=== PATIENT | female | born 1985 | race African-American/Black ===

== ENCOUNTER 2017-05-29 17:55 | Emergency (ER) | payer SELFPAY ==
[2017-05-29 18:02] VITALS: BP 119/84
[2017-05-29] MEDS ORDERED: Ibuprofen TAB* 600 MG PO ONE ×2 (18:21→19:22)
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
== END 2017-05-29 19:36 | disposition home or self-care (01) ==
LOC: UCEAST 17:55
DX: S29.012A Strain of muscle and tendon of back wall of thorax, initial encounter (principal); S39.012A Strain of muscle, fascia and tendon of lower back, initial encounter; V43.52XA Car driver injured in collision with other type car in traffic accident, initial encounter; Y93.89 Activity, other specified; Y92.410 Unspecified street and highway as the place of occurrence of the external cause; Z98.84 Bariatric surgery status
CPT/HCPCS: 72070; 72110; 99212; A9270-GY; G0463

== ENCOUNTER 2017-09-28 10:41 | Emergency (ER) | payer OTHER ==
[2017-09-28 10:53] VITALS: BP 135/82
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
== END 2017-09-28 11:14 | disposition home or self-care (01) ==
LOC: ED 10:41
DX: R10.84 Generalized abdominal pain (principal); Z53.21 Procedure and treatment not carried out due to patient leaving prior to being seen by health care provider

== ENCOUNTER 2017-10-05 00:18 | Emergency (ER) | payer OTHER ==
[2017-10-05 02:05] LABS: Urine Appearance Cloudy; Urine Blood 2+ (Negative); Urine Color Yellow; Urine Ketones Trace (Negative); Urine Protein Negative (Negative); Urine Specific Gravity 1.027 (1.010-1.030); Urine Urobilinogen Positive (Negative)
[2017-10-05] MEDS ORDERED: Morphine INJ* 2 MG/ML 1 ML CARPUJECT IV ONE (03:10)
[2017-10-05] MEDS ORDERED: NS 0.9% 1000 ML* 1,000 ML IV SCH (03:15)
[2017-10-05] MEDS ORDERED: Morphine INJ* 2 MG/ML 1 ML SYRINGE (TWO MG - NEW SYRINGE VERSION) ONE (03:44)
[2017-10-05 04:57] LABS: ABS Basophils 0 10^3/ul (0-0.2); ABS Eosinophils 0.2 10^3/ul (0-0.6); ABS Monocytes 0.4 10^3/ul (0-0.8); ABS Neutrophils 2.3 10^3/ul (1.5-7.7); ABS Nucleated RBC 0 10^3/ul; Hematocrit 36 % (35-47); Hemoglobin 11.5 g/dl (12.0-16.0); Lymphocyte % 39.4 % (25-47); Mean Corpuscular HGB Conc 32 g/dl (31-36); Mean Corpuscular Hemoglobin 27 pg (27-31); Mean Corpuscular Volume 82 fL (80-97); Mean Platelet Volume 9 um3 (7.4-10.4); Nucleated Red Blood Cells % 0; Platelet Count 244 10^3/ul (150-450); Red Blood Count 4.34 10^6/ul (4.0-5.4); Red Cell Distribution Width 16 % (10.5-15)
[2017-10-05 05:01] LABS: EGFR Non-African American 97.6 (>60)
[2017-10-05 05:42] VITALS: BP 97/54
--- NOTE | 2017-10-05 08:04 | RAD ---
INDICATION: Nausea and vomiting in a patient with a history of Cayden-en-Y gastric bypass surgery. COMPARISON: None TECHNIQUE: Supine and upright views of the abdomen were obtained. FINDINGS: There is a large amount of gas overlying the stool of the midline abdomen and left upper quadrant but no definite pathologic dilatation is noted. There is gas and stool seen throughout the colon as far as the rectum. There is surgical material at the left of midline epigastric area consistent with the patient's surgical history. There is no definite free intraperitoneal air. IMPRESSION: No radiographically apparent acute abdominal pathology.
--- NOTE | 2017-10-21 01:14 | ED ---
Yoselyn Sinha Emily, scribed for Андрей Martino MD on 10/05/17 at 0310 . Abdominal Pain/Female - HPI Summary HPI Summary: This patient is a 32 year old F presenting to [facility] with a chief complaint of sharp mid-epigastric abdominal pain that radiates to the low back that began at 1900. The patient rates the pain 9/10 in severity. Symptoms aggravated by nothing. Symptoms alleviated by nothing. Patient reports nausea and dark urine. Patient denies dysuria and changes in bowel movements. Pt denies having similar symptoms previously. - History of Current Complaint Chief Complaint: EDAbdPain Stated Complaint: ABD PAIN Hx Obtained From: Patient Hx Last Menstrual Period: 10/05/17 Onset/Duration: Sudden Onset, Lasting Hours, Still Present Timing: Constant Severity Initially: Severe Severity Currently: Severe Pain Intensity: 9 Pain Scale Used: 0-10 Numeric Location: Epigastric Character: Sharp Aggravating Factor(s): Nothing Alleviating Factor(s): Nothing Associated Signs and Symptoms: Positive: Nausea, Other: - Positive dark urine. Negative dysuria and changes in bowel movements Allergies/Adverse Reactions: Allergies Allergy/AdvReac Type Severity Reaction Status Date / Time No Known Allergies Allergy Verified 05/29/17 18:02 PMH/Surg Hx/FS Hx/Imm Hx Previously Healthy: No Endocrine/Hematology History: Denies: Hx Diabetes, Hx Thyroid Disease Cardiovascular History: Denies: Hx Congestive Heart Failure, Hx Hypertension Respiratory History: Denies: Hx Asthma, Hx Chronic Obstructive Pulmonary Disease (COPD) GI History: Reports: Other GI Disorders - RUQ pain s/p gastric bypass in june 2012 Denies: Hx Ulcer History: Denies: Hx Renal Disease, Other Problems/Disorders Sensory History: Denies: Hx Contacts or Glasses, Hx Hearing Aid Opthamlomology History: Denies: Hx Contacts or Glasses Neurological History: Denies: Hx Headaches, Hx Migraine, Hx Seizures Psychiatric History: Denies: Hx Anxiety - NOTHING APPLIES ON WHOLE FRONT OF FORM, Hx Depression, Hx Bipolar Disorder - Surgical History Surgery Procedure, Year, and Place: X 3; GASTRIC BYPASS 06/2012; Diagnotic Lap (Internal Hernia) 01/05, tummy tuck Hx Anesthesia Reactions: No - Immunization History Date of Tetanus Vaccine: unknown Date of Influenza Vaccine: 2011 Infectious Disease History: No Infectious Disease History: Denies: Hx Hepatitis, Hx Human Immunodeficiency Virus (HIV), History Other Infectious Disease, Traveled Outside the [place] in Last 30 Days - Family History Known Family History: Negative: Cardiac Disease, Hypertension, Diabetes Family History: NON CONTRIBUTORY - Social History Occupation: Employed Part-time Lives: Alone Alcohol Use: Occasionally Substance Use Type: Reports: Marijuana Substance Use Comment - Amount & Last Used: Rare Smoking Status (MU): Never Smoked Tobacco Review of Systems Positive: Abdominal Pain, Nausea, Other - Negative changes in bowel movements. Negative: Vomiting Genitourinary: Other - Positive dark urine Negative: dysuria All Other Systems Reviewed And Are Negative: Yes Physical Exam - Summary Physical Exam Summary: Appearance: Well-appearing, Well-nourished Skin: Warm, Dry, No rash Eyes: Normal, PERRL, EOMI, sclera anicteric ENT: Normal Neck: Supple, nontender Respiratory: Clear to auscultation Cardiovascular: S1, S2, no murmur, no rub, no gallop Abdomen: Soft, nontender, no organomegaly Bowel sounds: Present Musculoskeletal: Normal, Strength/ROM Intact, no edema, pulses symmetrical Neurological: Normal, A&Ox3, cranial nerves II-XII WNL, follows commands, gait not tested, sensation intact to pin and light touch Psychiatric: affect normal, behavior appropriate, dressed appropriately, judgment intact Triage Information Reviewed: Yes Vital Signs On Initial Exam: Initial Vitals Temp Pulse Resp BP Pulse Ox 98.0 F 82 16 129/98 100 10/05/17 00:20 10/05/17 00:20 10/05/17 00:20 10/05/17 00:20 10/05/17 00:20 Vital Signs Reviewed: Yes Diagnostics - Vital Signs Vital Signs Temp Pulse Resp BP Pulse Ox 10/05/17 00:20 98.0 F 82 16 129/98 100 - Laboratory Lab Results: Lab Results 10/05/17 Range/Units 00:23 Urine Color Yellow Urine Appearance Cloudy Urine pH 6.0 (5-9) Ur Specific [place] 1.027 (1.010-1.030) Urine Protein Negative (Negative) Urine Ketones Trace H (Negative) Urine Blood 2+ H (Negative) Urine Nitrate Negative (Negative) Urine Bilirubin Negative (Negative) Urine Urobilinogen Positive H (Negative) Ur Leukocyte Esterase Trace H (Negative) Urine WBC (Auto) Trace(0-5/hpf) (Absent) Urine RBC (Auto) Trace(0-2/hpf) (Absent) Ur Squamous Epith Cells Present H (Absent) Urine Bacteria Absent (Absent) Urine Glucose Negative (Negative) Result Diagrams: 10/05/17 04:15 10/05/17 04:15 Lab Statement: Any lab studies that have been ordered have been reviewed, and results considered in the medical decision making process. - Radiology Abdomen XR Radiology Interpretation Completed By: ED Physician - Abdomen XR reveals, per ED physician, normal intestinal gas from the left side of the colon. Abdominal Pain Fem Course/Dx - Course Course Of Treatment: This patient is a 32 year old F presenting to [facility] with a chief complaint of sharp umbilical abdominal pain that radiates to the low back that began at 1900. Physical Exam Findings. Nml. Abdomen XR reveals, per ED physician, normal intestinal gas from the left side of the colon. Bloodwork and UA obtained. In the ED course the patient was given morphine and fluids. Patient will be discharged with follow up from PCP. The patient is agreeable with this plan. - Diagnoses Provider Diagnoses: Dysmenorrhea Discharge - Discharge Plan Condition: Good Disposition: HOME Patient Education Materials: Dysmenorrhea (ED) Referrals: Carmen Perez NP [Primary Care Provider] - The documentation as recorded by the Yoselyn lopez Emily accurately reflects the service I personally performed and the decisions made by me, Андрей Martino MD.
== END 2017-10-05 05:40 | disposition home or self-care (01) ==
LOC: ED 00:18
DX: N94.6 Dysmenorrhea, unspecified (principal); R11.0 Nausea; R10.13 Epigastric pain
CPT/HCPCS: 36415; 74019; 80053; 81003; 81015; 83690; 85025; 87077; 87086; 96374; 96376; 99283; J2270

== ENCOUNTER 2018-01-29 13:37 | Emergency (ER) | payer OTHER ==
[2018-01-29 13:52] VITALS: BP 125/84
--- NOTE | 2018-01-29 13:57 | UC ---
Throat Pain/Nasal Raymundo HPI - HPI Summary HPI Summary: Pt presents with swollen lymph node to the right side of her neck - first noticed about 3 weeks ago. Has not been changing in size or shape and is not painful. Over the last 2-3 days she has been having right ear pain as well. She is very concerned that this could be her thyroid and would like this checked today. Denies fever, chills, weight loss/gain, night sweats, sore throat, headache, cough, SOB, chest pain. - History of Current Complaint Chief Complaint: UCRespiratory Stated Complaint: SWOLLEN GLANDS Time Seen by Provider: 01/29/18 13:57 Hx Obtained From: Patient Hx Last Menstrual Period: 12/24/17 Severity: Moderate Pain Intensity: 5 Pain Scale Used: 0-10 Numeric - Allergies/Home Medications Allergies/Adverse Reactions: Allergies Allergy/AdvReac Type Severity Reaction Status Date / Time No Known Allergies Allergy Verified 01/29/18 13:52 Home Medications: Home Medications Cyanocobalamin TAB* [Vitamin B12 TAB*] 1,000 mcg PO DAILY 01/29/18 [History Confirmed 01/29/18] Ferrous Sulfate TAB* 325 mg PO DAILY 01/29/18 [History Confirmed 01/29/18] PMH/Surg Hx/FS Hx/Imm Hx - Additional Past Medical History Additional PMH: Vitamin B12 def Anemia - Surgical History Surgical History: Yes Surgery Procedure, Year, and Place: X 3; GASTRIC BYPASS 06/2012; Diagnotic Lap (Internal Hernia) 01/05, anita velazquez - Family History Known Family History: Negative: Cardiac Disease, Hypertension, Diabetes Family History: NON CONTRIBUTORY - Social History Lives: With Family Alcohol Use: None Substance Use Type: Marijuana Substance Use Comment - Amount & Last Used: daily Smoking Status (MU): Never Smoked Tobacco - Immunization History Most Recent Influenza Vaccination: 2009 Most Recent Tetanus Shot: Unknown Most Recent Pneumonia Vaccination: Never Review of Systems Constitutional: Negative Skin: Negative Eyes: Negative ENT: Ear Ache Respiratory: Negative Cardiovascular: Negative Gastrointestinal: Negative Neurovascular: Negative Neurological: Negative Psychological: Negative All Other Systems Reviewed And Are Negative: Yes Physical Exam - Summary Physical Exam Summary: GENERAL: NAD. WDWN. No pain distress. SKIN: No rashes, sores, ulcers, masses, lesions. HEENT: Head: AT/NC Eyes: PERRLA. EOM intact. Conjunctiva clear without inflammation or discharge. Ears: Hearing grossly normal. TMs intact, no bulging, erythema, or edema. Nose: Nasal mucosa pink and moist. NTTP maxillary and frontal sinus. Throat: Posterior oropharynx without exudates, erythema, or tonsillar enlargement. Uvula midline. NECK: Supple. Right tonsillar lymph node approx 3mm in size. Mobile. Mildly TTP. CHEST: CTAB. No r/r/w. No accessory muscle use. Breathing comfortably and in no distress. CV: RRR. Without m/r/g. Pulses intact. Brisk cap refill. NEURO: Alert. CN II-XII grossly intact. PSYCH: Age appropriate behavior. Triage Information Reviewed: Yes Vital Signs: Initial Vital Signs Temp 98.8 F 01/29/18 13:49 Pulse 88 01/29/18 13:49 Resp 16 01/29/18 13:49 BP 125/84 01/29/18 13:49 Pulse Ox 100 01/29/18 13:49 Throat Pain/Nasal Course/Dx - Course Course Of Treatment: Will draw for CBC and TSH and advise her to f/u with her PCP for lab results and further evaluation. - Differential Dx/Diagnosis Provider Diagnoses: Tonsillar LAD Discharge - Sign-Out/Discharge Documenting (check all that apply): Discharge/Admit/Transfer - Discharge Plan Condition: Stable Disposition: HOME Patient Education Materials: Lymphadenopathy (ED) Referrals: Carmen Perez NP [Primary Care Provider] - Additional Instructions: If you develop a fever, shortness of breath, chest pain, new or worsening symptoms - please call your PCP or go to the ED. 1) Please schedule a follow up appointment with PCP for their next available appointment - Billing Disposition and Condition Condition: STABLE Disposition: HOME
[2018-01-29 18:45] LABS: ABS Basophils 0.1 10^3/ul (0-0.2); ABS Eosinophils 0.2 10^3/ul (0-0.6); ABS Monocytes 0.4 10^3/ul (0-0.8); ABS Neutrophils 2.4 10^3/ul (1.5-7.7); ABS Nucleated RBC 0 10^3/ul; Eosinophil % 4.2 % (0-6); Hematocrit 38 % (35-47); Hemoglobin 12.8 g/dl (12.0-16.0); Lymphocyte % 39.5 % (25-47); Mean Corpuscular HGB Conc 33 g/dl (31-36); Mean Corpuscular Hemoglobin 29 pg (27-31); Mean Corpuscular Volume 87 fL (80-97); Mean Platelet Volume 9.7 um3 (7.4-10.4); Nucleated Red Blood Cells % 0; Platelet Count 210 10^3/ul (150-450); Red Blood Count 4.42 10^6/ul (4.0-5.4); Red Cell Distribution Width 15 % (10.5-15); White Blood Count 5.1 10^3/ul (3.5-10.8)
--- NOTE | 2018-01-30 11:43 | UC ---
- Progress Note Progress Note: PLS CALL PT. TSH BORDERLINE LOW. FOLLOW-UP WITH PCP FOR FURTHER EVALUATION. - WILBERT MERA MD Discharge - Sign-Out/Discharge Documenting (check all that apply): Post-Discharge Follow Up - Discharge Plan Condition: Stable Disposition: HOME Patient Education Materials: Lymphadenopathy (ED) Referrals: Carmen Perez NP [Primary Care Provider] - Additional Instructions: If you develop a fever, shortness of breath, chest pain, new or worsening symptoms - please call your PCP or go to the ED. 1) Please schedule a follow up appointment with PCP for their next available appointment - Billing Disposition and Condition Condition: STABLE Disposition: HOME
== END 2018-01-29 14:20 | disposition home or self-care (01) ==
LOC: UCEAST 13:37
DX: R59.0 Localized enlarged lymph nodes (principal); R94.6 Abnormal results of thyroid function studies; H92.01 Otalgia, right ear; D51.9 Vitamin B12 deficiency anemia, unspecified
CPT/HCPCS: 36415; 84443; 85025; 99211; G0463

== ENCOUNTER 2018-02-22 06:21 | Day surgery (SDC) | payer OTHER ==
[~2018-02-22 06:21] MED LIST: Buffered Lidocaine 0.9% SYRIN* 5 ML/SYR SYRINGE INTRADERM ONE; Dexamethasone IV* 4 MG/ML 1 ML (4 MG) IV SLOW PU ONE; Famotidine IV* 10 MG/ML 2 ML (20 mg) IV ONE
[2018-02-22] MEDS ORDERED: Famotidine IV* 10 MG/ML 2 ML (20 mg) ONE (06:44)
[2018-02-22] MEDS ORDERED: Dexamethasone IV* 4 MG/ML 1 ML (4 MG) ONE (06:44)
[2018-02-22] MEDS ORDERED: Midazolam* 1 MG/ML 2 ML VIAL (2 MG) ONE (08:04)
[2018-02-22] MEDS ORDERED: fentaNYL* 50 MCG/ML 2 ML VIAL (100 MCG VIAL) ONE ×2 (08:04→09:50)
[2018-02-22] MEDS ORDERED: Bupivacaine 0.5% SDV PF* 30ML VIAL ONE (08:11)
[2018-02-22] MEDS ORDERED: Propofol* 10 MG/ML 20 ML BTL IV PUSH ONE (09:06)
[2018-02-22] MEDS ORDERED: Succinylcholine* 20 MG/ML 10 ML VIAL ONE (09:06)
[2018-02-22] MEDS ORDERED: Lidocaine 2% PF * 5 ML VIAL ONE (09:06)
[2018-02-22] MEDS ORDERED: Rocuronium* 10 MG/ML VIAL ONE (09:11)
[2018-02-22] MEDS ORDERED: Glycopyrrolate IV* 0.2 MG/ML 1 ML VIAL ONE (09:16)
[2018-02-22] MEDS ORDERED: Sugammadex * 200 MG/2 ML VIAL IV PUSH ONE (09:44)
[2018-02-22] MEDS ORDERED: Ondansetron ODT TAB* 4 MG PO PRN (09:51)
[2018-02-22] MEDS ORDERED: Naloxone* 0.4 MG/ML 1 ML VIAL IV PRN (09:51)
[2018-02-22] MEDS ORDERED: HYDROmorphone INJ* 1 MG/ML CARPUJECT SYRINGE IV PRN (09:51)
[2018-02-22] MEDS: fentaNYL* 50 MCG/ML 2 ML VIAL (100 MCG VIAL) IV PRN ×2 (09:52→10:16)
--- NOTE | 2018-02-22 10:08 | OP ---
DATE OF OPERATION: 02/22/2018 [facility] DATE OF : 1985. SURGEON: Cheryl Gonzalez MD. ANESTHESIOLOGIST: Ramakrishna Simmons MD. ANESTHESIA: General endotracheal. PRE-OP DIAGNOSIS: Satisfied parity. POST-OP DIAGNOSIS: Satisfied parity. OPERATIVE PROCEDURE: Laparoscopic bilateral tubal ligation with Filshie clips. ESTIMATED BLOOD LOSS: Minimal. URINE OUTPUT: 100 CC. IV FLUIDS: 900 cc lactated Ringer's. MATERIALS TO LAB: None. INDICATIONS: This patient is a 33-year-old 3, para 3 who presented to the office desiring permanent sterilization. Her options for long-term contraception were discussed, but she desired sterilization. She was extensively counseled and consent was signed. Of note, the patient's history was significant for times three, gastric bypass, abdominoplasty, and liposuction, so she had multiple abdominal scars. FINDINGS: Uterus densely adhesed to the anterior abdominal wall. Ovaries and tubes appeared normal bilaterally. Appendix was also visualized and appeared normal. Two Filshie clips were placed on the right tube to ensure the entire tube had been clamped off. COMPLICATIONS: None. DESCRIPTION OF PROCEDURE: The risks, benefits, and alternatives were described to the patient, and informed consent was obtained. The patient was taken to the operating room with IV running where general anesthesia was induced and found to be adequate. The patient was prepped and draped in normal-sterile fashion in the low lithotomy position in Geovany stirrups. A time-out was performed. The bladder was emptied. A bivalve speculum was placed in the vagina and a Hulka tenaculum was placed through the cervix into the uterus. The cervix had to be grasped initially with a single tooth tenaculum because it was extremely anterior. The speculum was then removed. Attention was then turned to the abdomen. 0.25% Marcaine was then injected into the skin just above the umbilicus. A 5 mm skin incision was made with a scalpel in the umbilicus. A 5mm bladeless trocar was then inserted through the incision and into the peritoneal cavity. The skin was elevated using penetrating towel clamps. Once the trocar was in the abdominal cavity, the abdomen was insufflated with carbon dioxide gas to a maximum pressure of 15 mmHg. Using the camera, the area below the trocar placement was carefully inspected and there was no evidence of trauma or bleeding. The patient was placed in Trendelenburg position. The findings are noted above. Because the uterus was densely adhesed anteriorly, the second incision was made in the left lower quadrant lateral and caudal to the umbilical incision. 0.25% Marcaine was injected prior to the incision. An 8- mm blunt trocar was placed through this incision and into the abdominal cavity without difficulty. Both tubes and ovaries were well-visualized. Filshie clips were prepared. A Filshie clip was then placed on the patient's right fallopian tube in the mid isthmic portion without difficulty. On careful inspection, because the uterus could not be moved, I could not be completely sure that the clip had completely cross the entire width of the tube. Because of this, a second clip was placed just medial to that one. Another clip was placed on the patient's left side, this time without difficulty and with excellent hemostasis. The case was then completed. The trocars were removed from the abdomen and the gas was allowed to escape. The skin was reapproximated using 4-0 Monocryl in a subcuticular stitch, and the incisions were then overlaid with Dermabond skin adhesive. The tenaculum was then removed from the cervix as well, and there was only light bleeding from the vagina at that time. The patient was returned to the supine position and allowed to awaken. The patient tolerated the procedure well. Sponge, lap, and needle counts were correct x2. [id number]/[facility] #: [id number] MTDD
[2018-02-22] MEDS ORDERED: oxyCODONE/Acetamin 5/325 MG* TAB ONE (10:51)
[2018-02-22 11:32] VITALS: BP 145/74
== END 2018-02-22 11:47 | disposition home or self-care (01) ==
LOC: OR 06:21
PROVIDERS: ATTEND Obstetrics & Gynecology
DX: Z30.2 Encounter for sterilization (principal); Z98.84 Bariatric surgery status
CPT/HCPCS: 81025; A9270-GY; C1776; J0330; J1100; J2250; J2704; J3010

== ENCOUNTER 2018-06-13 22:33 | Emergency (ER) | payer MEDICAID ==
[2018-06-13 23:11] LABS: ABS Basophils 0 10^3/ul (0-0.2); ABS Eosinophils 0.4 10^3/ul (0-0.6); ABS Lymphocytes 2.8 10^3/ul (1.0-4.8); ABS Monocytes 0.5 10^3/ul (0-0.8); ABS Neutrophils 2.8 10^3/ul (1.5-7.7); ABS Nucleated RBC 0 10^3/ul; Eosinophil % 6.4 % (0-6); Hematocrit 39 % (35-47); Lymphocyte % 42.4 % (25-47); Mean Corpuscular HGB Conc 33 g/dl (31-36); Mean Corpuscular Hemoglobin 29 pg (27-31); Mean Corpuscular Volume 87 fL (80-97); Nucleated Red Blood Cells % 0; Platelet Count 203 10^3/ul (150-450); Red Blood Count 4.53 10^6/ul (4.00-5.40); Red Cell Distribution Width 14 % (10.5-15); White Blood Count 6.6 10^3/ul (3.5-10.8)
[2018-06-13 23:29] LABS: Urine Appearance Clear; Urine Blood Negative (Negative); Urine Color Yellow; Urine Ketones Negative (Negative); Urine Protein Negative (Negative); Urine Specific Gravity 1.016 (1.010-1.030); Urine Urobilinogen Negative (Negative)
[2018-06-13 23:32] LABS: EGFR Non-African American 77.5 (>60)
[2018-06-14] MEDS ORDERED: Iohexol 300* (CONTRAST) 10 ML SDV IV ONE (00:03)
--- NOTE | 2018-06-14 01:09 | RAD ---
EXAM: CT Abdomen and Pelvis With Intravenous Contrast CLINICAL HISTORY: 33 years old, female; Pain; Abdominal pain; Localized; Right lower quadrant (rlq); Prior surgery; Surgery date: 6+ months; Surgery type: [place]den en y 2011. Hernia repair 2012; Additional info: Rlq pain, HX of gastric bypass TECHNIQUE: Axial computed tomography images of the abdomen and pelvis with intravenous contrast. All CT scans at this facility use at least one of these dose optimization techniques: automated exposure control; mA and/or kV adjustment per patient size (includes targeted exams where dose is matched to clinical indication); or iterative reconstruction. Coronal and sagittal reformatted images were created and reviewed. CONTRAST: 97 mL of OMNI 300 administered intravenously. COMPARISON: A/P W CT ABD/PEL W 12/24/2013 6:15 AM FINDINGS: Lung bases: Unremarkable. No mass. No consolidation. ABDOMEN: Liver: Unremarkable. No mass. Gallbladder and bile ducts: Unremarkable. No calcified stones. No ductal dilation. Pancreas: Unremarkable. No mass. No ductal dilation. Spleen: Unremarkable. No splenomegaly. Adrenals: Unremarkable. No mass. Kidneys and ureters: Unremarkable. No solid mass. No hydronephrosis. Stomach and bowel: The patient is status post gastric surgery. No obstruction. No mucosal thickening. PELVIS: Appendix: The appendix is normal in appearance. Bladder: Unremarkable. No mass. Reproductive: Surgical clips are seen in the pelvis bilaterally consistent with tubal ligation procedure. ABDOMEN and PELVIS: Intraperitoneal space: There is a small amount of free intraperitoneal fluid in the cul-de-sac. No free air. Bones/joints: No acute fracture. No dislocation. Soft tissues: Unremarkable. Vasculature: Unremarkable. No abdominal aortic aneurysm. Lymph nodes: Unremarkable. No enlarged lymph nodes. IMPRESSION: Status post tubal ligation procedure. Status post gastric surgery. Small amount of free intraperitoneal fluid in the cul-de-sac.
[2018-06-14 01:57] VITALS: BP 109/76
--- NOTE | 2018-06-14 04:41 | ED ---
Abdominal Pain/Female - HPI Summary HPI Summary: The patient is a 33 y.o female presenting to the [facility] with a chief complaint of Abd pain on the right side for one week. The pain is described to be as constant. PSHx include gastric bypass and tubal ligation. She reports no additional pain following eating. Other symptoms include urinary frequency. Pt also denies SOB, pelvic pain, N/V, pain from ambulation, fevers, constipation, and diarrhea. Primary region of the most severe pain includes the lower abd region. Pt denies hx of cholitis, and crohns disease. - History of Current Complaint Chief Complaint: EDAbdPain Stated Complaint: ABD PAIN Time Seen by Provider: 06/13/18 23:22 Hx Obtained From: Patient Hx Last Menstrual Period: 12/24/17 Onset/Duration: Sudden Onset, Lasting Weeks - 1 Timing: Constant Severity Initially: Severe Severity Currently: Severe Pain Intensity: 8 Pain Scale Used: 0-10 Numeric Location: Diffuse - Most severe pain at the lower abd region Aggravating Factor(s): Nothing Alleviating Factor(s): Nothing Associated Signs and Symptoms: Positive: Urinary Symptoms - frequency, Other: - Negative SOB. Negative: Fever, Constipation, Nausea, Vomiting - Negative pelvic pain, Diarrhea Allergies/Adverse Reactions: Allergies Allergy/AdvReac Type Severity Reaction Status Date / Time No Known Allergies Allergy Verified 06/13/18 22:51 PMH/Surg Hx/FS Hx/Imm Hx Endocrine/Hematology History: Denies: Hx Diabetes, Hx Thyroid Disease Cardiovascular History: Denies: Hx Congestive Heart Failure, Hx Hypertension Respiratory History: Denies: Hx Asthma, Hx Chronic Obstructive Pulmonary Disease (COPD) GI History: Reports: Other GI Disorders - RUQ pain s/p gastric bypass in june 2012 Denies: Hx Ulcer History: Denies: Hx Renal Disease, Other Problems/Disorders Sensory History: Denies: Hx Contacts or Glasses, Hx Hearing Aid Opthamlomology History: Denies: Hx Contacts or Glasses Neurological History: Denies: Hx Headaches, Hx Migraine, Hx Seizures Psychiatric History: Denies: Hx Anxiety - NOTHING APPLIES ON WHOLE FRONT OF FORM, Hx Depression, Hx Bipolar Disorder - Surgical History Surgery Procedure, Year, and Place: X 3; GASTRIC BYPASS 06/2012; Diagnotic Lap (Internal Hernia) 01/05, tummy tuck Hx Anesthesia Reactions: No - Immunization History Date of Tetanus Vaccine: unknown Date of Influenza Vaccine: 2011 Infectious Disease History: No Infectious Disease History: Denies: Hx Hepatitis, Hx Human Immunodeficiency Virus (HIV), History Other Infectious Disease, Traveled Outside the [place] in Last 30 Days - Family History Known Family History: Negative: Cardiac Disease, Hypertension, Diabetes Family History: NON CONTRIBUTORY - Social History Alcohol Use: Occasionally Alcohol Amount: MAYBE 1-2 DRINKS/MONTH Substance Use Type: Reports: Marijuana Substance Use Comment - Amount & Last Used: daily Smoking Status (MU): Never Smoked Tobacco Amount Used/How Often: 0 Have You Smoked in the Last Year: No Review of Systems Negative: Fever Eyes: Negative ENT: Negative Cardiovascular: Negative Negative: Shortness Of Breath Gastrointestinal: Other - Negative Constipation Positive: Abdominal Pain. Negative: Vomiting, Diarrhea, Nausea Positive: frequency Musculoskeletal: Other - Negative ambulatory pain Skin: Negative Neurological: Negative Psychological: Normal All Other Systems Reviewed And Are Negative: Yes Physical Exam - Summary Physical Exam Summary: Appearance: Well appearing, no pain distress Skin: warm, dry, reflects adequate perfusion Head/face: normal Eyes: EOMI, DAMARIS ENT: mucous membranes moist Neck: supple, non-tender Respiratory: CTA, breath sounds present Cardiovascular: RRR, pulses symmetrical Abdomen: No pain in the right upper quadrant, Negative murphys sign, No rebound or guarding, Moderate pain in the right lower quadrant Bowel Sounds: Mildly hyperactive Musculoskeletal: normal, strength/ROM intact Neuro: normal, sensory motor intact, A&Ox3 Triage Information Reviewed: Yes Vital Signs On Initial Exam: Initial Vitals Temp Pulse Resp BP Pulse Ox 99.0 F 61 18 103/74 100 06/13/18 22:40 06/13/18 22:40 06/13/18 22:40 06/13/18 22:40 06/13/18 22:40 Vital Signs Reviewed: Yes Diagnostics - Vital Signs Vital Signs Temp Pulse Resp BP Pulse Ox 06/14/18 01:57 98 F 63 20 109/76 96 06/14/18 01:17 64 109/76 97 06/14/18 01:00 59 97 06/14/18 00:47 57 122/75 98 06/14/18 00:30 59 98 06/13/18 23:47 102/63 06/13/18 23:26 61 100 06/13/18 23:17 70 122/69 100 06/13/18 22:40 99.0 F 61 18 103/74 100 - Laboratory Lab Results: Lab Results 06/13/18 06/13/18 06/13/18 Range/Units 23:01 23:01 23:01 WBC 6.6 (3.5-10.8) 10^3/ul RBC 4.53 (4.00-5.40) 10^6/ul Hgb 13.0 (12.0-16.0) g/dl Hct 39 (35-47) % MCV 87 (80-97) fL MCH 29 (27-31) pg MCHC 33 (31-36) g/dl RDW 14 (10.5-15) % Plt Count 203 (150-450) 10^3/ul MPV 9.0 (7.4-10.4) um3 Neut % (Auto) 43.2 (38-83) % Lymph % (Auto) 42.4 (25-47) % [place] % (Auto) 7.5 H (0-7) % Eos % (Auto) 6.4 H (0-6) % Baso % (Auto) 0.5 (0-2) % Absolute Neuts (auto) 2.8 (1.5-7.7) 10^3/ul Absolute Lymphs (auto) 2.8 (1.0-4.8) 10^3/ul Absolute Monos (auto) 0.5 (0-0.8) 10^3/ul Absolute Eos (auto) 0.4 (0-0.6) 10^3/ul Absolute Basos (auto) 0 (0-0.2) 10^3/ul Absolute Nucleated RBC 0 10^3/ul Nucleated RBC % 0 Sodium 137 (135-145) mmol/L Potassium 4.3 (3.5-5.0) mmol/L Chloride 106 (101-111) mmol/L Carbon Dioxide 25 (22-32) mmol/L Anion Gap 6 (2-11) mmol/L BUN 15 (6-24) mg/dL Creatinine 0.85 (0.51-0.95) mg/dL Est GFR ( Amer) 93.8 (>60) Est GFR (Non-Af Amer) 77.5 (>60) BUN/Creatinine Ratio 17.6 (8-20) Glucose 128 H (70-100) mg/dL Lactic Acid 0.8 (0.5-2.0) mmol/L Calcium 9.0 (8.6-10.3) mg/dL Total Bilirubin 0.30 (0.2-1.0) mg/dL AST 31 (13-39) U/L ALT 16 (7-52) U/L Alkaline Phosphatase 60 (34-104) U/L C-Reactive Protein 1.15 (<8.01) mg/L Total Protein 7.4 (6.4-8.9) g/dL Albumin 4.0 (3.2-5.2) g/dL Globulin 3.4 (2-4) g/dL Albumin/Globulin Ratio 1.2 (1-3) Lipase 61 (11.0-82.0) U/L Beta HCG, Quant < 0.60 mIU/mL Urine Color Urine Appearance Urine pH (5-9) Ur Specific [place] (1.010-1.030) Urine Protein (Negative) Urine Ketones (Negative) Urine Blood (Negative) Urine Nitrate (Negative) Urine Bilirubin (Negative) Urine Urobilinogen (Negative) Ur Leukocyte Esterase (Negative) Urine Glucose (Negative) 06/13/18 Range/Units 23:17 WBC (3.5-10.8) 10^3/ul RBC (4.00-5.40) 10^6/ul Hgb (12.0-16.0) g/dl Hct (35-47) % MCV (80-97) fL MCH (27-31) pg MCHC (31-36) g/dl RDW (10.5-15) % Plt Count (150-450) 10^3/ul MPV (7.4-10.4) um3 Neut % (Auto) (38-83) % Lymph % (Auto) (25-47) % [place] % (Auto) (0-7) % Eos % (Auto) (0-6) % Baso % (Auto) (0-2) % Absolute Neuts (auto) (1.5-7.7) 10^3/ul Absolute Lymphs (auto) (1.0-4.8) 10^3/ul Absolute Monos (auto) (0-0.8) 10^3/ul Absolute Eos (auto) (0-0.6) 10^3/ul Absolute Basos (auto) (0-0.2) 10^3/ul Absolute Nucleated RBC 10^3/ul Nucleated RBC % Sodium (135-145) mmol/L Potassium (3.5-5.0) mmol/L Chloride (101-111) mmol/L Carbon Dioxide (22-32) mmol/L Anion Gap (2-11) mmol/L BUN (6-24) mg/dL Creatinine (0.51-0.95) mg/dL Est GFR ( Amer) (>60) Est GFR (Non-Af Amer) (>60) BUN/Creatinine Ratio (8-20) Glucose (70-100) mg/dL Lactic Acid (0.5-2.0) mmol/L Calcium (8.6-10.3) mg/dL Total Bilirubin (0.2-1.0) mg/dL AST (13-39) U/L ALT (7-52) U/L Alkaline Phosphatase (34-104) U/L C-Reactive Protein (<8.01) mg/L Total Protein (6.4-8.9) g/dL Albumin (3.2-5.2) g/dL Globulin (2-4) g/dL Albumin/Globulin Ratio (1-3) Lipase (11.0-82.0) U/L Beta HCG, Quant mIU/mL Urine Color Yellow Urine Appearance Clear Urine pH 5.0 (5-9) Ur Specific [place] 1.016 (1.010-1.030) Urine Protein Negative (Negative) Urine Ketones Negative (Negative) Urine Blood Negative (Negative) Urine Nitrate Negative (Negative) Urine Bilirubin Negative (Negative) Urine Urobilinogen Negative (Negative) Ur Leukocyte Esterase Negative (Negative) Urine Glucose Negative (Negative) Result Diagrams: 06/13/18 23:01 06/13/18 23:01 Lab Statement: Any lab studies that have been ordered have been reviewed, and results considered in the medical decision making process. Abdominal Pain Fem Course/Dx - Course Course Of Treatment: Patient is status post gastric bypass with diffuse right- sided abdominal tenderness. There is no significant right upper quadrant tenderness and no Reynoso sign. Laboratories are benign and she is very comfortable not requiring any pain medication. A CT scan was performed and showed a normal appendix. There was stool throughout the right colon. We will treat her symptomatically as possible constipation. Follow-up with primary care physician. - Diagnoses Differential Diagnosis: Positive: Appendicitis, Constipation, Ovarian Cyst, Pancreatitis, Peptic Ulcer Disease, Urinary Tract Infection Provider Diagnoses: RLQ abdominal pain, Constipation Discharge - Sign-Out/Discharge Documenting (check all that apply): Patient Departure - Discharge home - Discharge Plan Condition: Improved Disposition: HOME Prescriptions: Hyoscyamine Sulfate [Levsin-Sl] 0.125 mg SL Q4H PRN #20 tab.subl PRN Reason: abdominal cramping Polyethylene Glycol 3350* [Miralax*] 17 gm PO TID PRN #1 bottle PRN Reason: Constipation Patient Education Materials: Constipation (ED), Acute Abdominal Pain (ED) Referrals: Thien Mathis MD [Primary Care Provider] - Additional Instructions: Drink plenty of fluids, natural fruit juices may help. Try apple or prune juice. Abdominal massage, exercises may help. Return with fever, vomiting, increased pain, worse or other concerns as discussed. - Billing Disposition and Condition Condition: IMPROVED Disposition: Home - Attestation Statements Document Initiated by Scribe: Yes Documenting Scribe: Joseph Rodriguez Provider For Whom Scribe is Documenting (Include Credential): Dr. Barroso Scribe Attestation: Joseph Sinha, scradaed for Dr. Barroso on 06/14/18 at 0448. Scribe Documentation Reviewed: Yes Provider Attestation: The documentation as recorded by the Joseph lopez accurately reflects the service I personally performed and the decisions made by , Dr. Barroso
== END 2018-06-14 01:57 | disposition home or self-care (01) ==
LOC: ED 22:33
DX: R10.31 Right lower quadrant pain (principal); K59.00 Constipation, unspecified; Z98.84 Bariatric surgery status; Z98.51 Tubal ligation status
CPT/HCPCS: 36415; 74177; 80053; 81003; 83605; 83690; 84702; 85025; 86140; 99282; Q9967

== ENCOUNTER 2018-10-12 18:27 | Emergency (ER) | payer OTHER ==
[2018-10-12 18:47] VITALS: BP 118/80
--- NOTE | 2018-10-12 19:28 | ED ---
Throat Pain/Nasal Congestion - HPI Summary HPI Summary: swollen upper lip which began starting this am, with some pain, noted some redness of the area above the lip as well. - History of Current Complaint Chief Complaint: UCSkin Time Seen by Provider: 10/12/18 18:52 Hx Obtained From: Patient Onset/Duration: Sudden Onset Severity: Moderate Associated Signs And Symptoms: Positive: Negative - Epiglottits Risk Factors Epiglottis Risk Factors: Negative - Allergies/Home Medications Allergies/Adverse Reactions: Allergies Allergy/AdvReac Type Severity Reaction Status Date / Time No Known Allergies Allergy Verified 10/12/18 18:47 Home Medications: Home Medications Ibuprofen TAB* [Advil TAB*] 200 mg PO ONCE PRN 10/12/18 [History Confirmed 10/12] PMH/Surg Hx/FS Hx/Imm Hx Previously Healthy: Yes Endocrine/Hematology History: Denies: Hx Diabetes, Hx Thyroid Disease Cardiovascular History: Denies: Hx Congestive Heart Failure, Hx Hypertension Respiratory History: Denies: Hx Asthma, Hx Chronic Obstructive Pulmonary Disease (COPD) GI History: Reports: Other GI Disorders - RUQ pain s/p gastric bypass in june 2012 Denies: Hx Ulcer History: Denies: Hx Renal Disease, Other Problems/Disorders Sensory History: Denies: Hx Contacts or Glasses, Hx Hearing Aid Opthamlomology History: Denies: Hx Contacts or Glasses Neurological History: Denies: Hx Headaches, Hx Migraine, Hx Seizures Psychiatric History: Denies: Hx Anxiety - NOTHING APPLIES ON WHOLE FRONT OF FORM, Hx Depression, Hx Bipolar Disorder - Surgical History Surgery Procedure, Year, and Place: X 3; GASTRIC BYPASS 06/2012; Diagnotic Lap (Internal Hernia) 01/05, tummy tuck Hx Anesthesia Reactions: No - Immunization History Date of Tetanus Vaccine: unknown Date of Influenza Vaccine: 2011 Infectious Disease History: No Infectious Disease History: Denies: Hx Hepatitis, Hx Human Immunodeficiency Virus (HIV), History Other Infectious Disease, Traveled Outside the [place] in Last 30 Days - Family History Known Family History: Negative: Cardiac Disease, Hypertension, Diabetes Family History: NON CONTRIBUTORY - Social History Alcohol Use: Occasionally Alcohol Amount: MAYBE 1-2 DRINKS/MONTH Substance Use Type: Reports: Marijuana Substance Use Comment - Amount & Last Used: daily Smoking Status (MU): Never Smoked Tobacco Amount Used/How Often: 0 Have You Smoked in the Last Year: No Review of Systems Constitutional: Negative Eyes: Negative ENT: Negative Cardiovascular: Negative Respiratory: Negative Gastrointestinal: Negative Genitourinary: Negative Musculoskeletal: Negative Positive: Rash All Other Systems Reviewed And Are Negative: Yes Physical Exam Triage Information Reviewed: Yes Vital Signs On Initial Exam: Initial Vitals Temp Pulse Resp BP Pulse Ox 36.9 C 89 16 118/80 100 10/12/18 18:42 10/12/18 18:42 10/12/18 18:42 10/12/18 18:42 10/12/18 18:42 Vital Signs Reviewed: Yes Appearance: Positive: Well-Appearing Skin: Positive: Warm - swollen left upper lip , piercing of the area above the lip mucosal portion of the lip with erythema and pain mild induration areaa superior to the left of the upper lip without blistering or drainage Head/Face: Positive: Normal Head/Face Inspection Eyes: Positive: Normal ENT: Positive: Other - swollen upper lip Diagnostics - Vital Signs Vital Signs Temp Pulse Resp BP Pulse Ox 10/12/18 18:42 36.9 C 89 16 118/80 100 - Laboratory Lab Statement: Any lab studies that have been ordered have been reviewed, and results considered in the medical decision making process. EENT Course/Dx - Diagnoses Provider Diagnoses: Cellulitis of vermilion border of lower lip Discharge - Sign-Out/Discharge Documenting (check all that apply): Patient Departure All imaging exams completed and their final reports reviewed: No - Discharge Plan Condition: Fair Disposition: HOME Prescriptions: Amoxicillin/Clavulanate TAB* [Augmentin TAB 875*] 875 mg PO BID #14 tab Patient Education Materials: Cellulitis (ED) Referrals: Thien Mathis MD [Primary Care Provider] - - Billing Disposition and Condition Condition: FAIR Disposition: Home
== END 2018-10-12 19:45 | disposition home or self-care (01) ==
LOC: UCEAST 18:27
DX: K13.0 Diseases of lips (principal)
CPT/HCPCS: 99212; G0463

== ENCOUNTER 2018-10-17 13:43 | Emergency (ER) | payer OTHER ==
--- NOTE | 2018-10-17 14:43 | ED ---
Adult Trauma - HPI Summary HPI Summary: This pt is a 33 y/o female presenting to [facility] c/o back pain s/o slipping and falling today. Pt reports she was walking her dog today when she slipped on ice and fell. She notes she landed on her right side and hit her back. Denies head strike or LOC. Denies abd pain, urinary or bowel incontinence/dysfunction, headache, chest pain, SOB, fever, chills, nausea, vomiting. Pt notes she does bruise easily. Denies chance of . Pt works as a nurse's aide. - History of Current Complaint Chief Complaint: EDBackInjuryPain Stated Complaint: FALL/BACK PAIN Hx Obtained From: Patient Hx Last Menstrual Period: 10/03/17 Mechanism of Injury: Fall Ambulatory at the Scene: Yes Loss of Consciousness: no loss of consciousness Onset/Duration: Started Hours Ago, Still Present Onset of Pain: Hours Current Severity: Severe Pain Intensity: 9 Pain Scale Used: 0-10 Numeric Location: Back Character: Aching Aggravating Factor(s): Movement Alleviating Factor(s): Rest Associated Signs & Symptoms: Negative: SOB, Chest Pain, Abdominal Pain, Fever, Nausea/Vomiting, Other: - NEG: headache, urinary or bowel incontinence - Allergy/Home Medications Allergies/Adverse Reactions: Allergies Allergy/AdvReac Type Severity Reaction Status Date / Time No Known Allergies Allergy Verified 10/12/18 18:47 Home Medications: Home Medications Multivitamin [Animal Shapes] 2 tab.chew PO DAILY 10/17/18 [History Confirmed ] PMH/Surg Hx/FS Hx/Imm Hx Endocrine/Hematology History: Denies: Hx Diabetes, Hx Thyroid Disease Cardiovascular History: Denies: Hx Congestive Heart Failure, Hx Hypertension Respiratory History: Denies: Hx Asthma, Hx Chronic Obstructive Pulmonary Disease (COPD) GI History: Reports: Other GI Disorders - RUQ pain s/p gastric bypass in june 2012 Denies: Hx Ulcer History: Denies: Hx Renal Disease, Other Problems/Disorders Sensory History: Denies: Hx Contacts or Glasses, Hx Hearing Aid Opthamlomology History: Denies: Hx Contacts or Glasses Neurological History: Denies: Hx Headaches, Hx Migraine, Hx Seizures Psychiatric History: Denies: Hx Anxiety - NOTHING APPLIES ON WHOLE FRONT OF FORM, Hx Depression, Hx Bipolar Disorder - Surgical History Surgery Procedure, Year, and Place: X 3; GASTRIC BYPASS 06/2012; Diagnotic Lap (Internal Hernia) 01/05, tummy tuck Hx Anesthesia Reactions: No - Immunization History Date of Tetanus Vaccine: unknown Date of Influenza Vaccine: 2011 Infectious Disease History: No Infectious Disease History: Denies: Hx Hepatitis, Hx Human Immunodeficiency Virus (HIV), History Other Infectious Disease, Traveled Outside the [place] in Last 30 Days - Family History Known Family History: Negative: Cardiac Disease, Hypertension, Diabetes Family History: NON CONTRIBUTORY - Social History Alcohol Use: Occasionally Alcohol Amount: MAYBE 1-2 DRINKS/MONTH Substance Use Type: Reports: Marijuana Substance Use Comment - Amount & Last Used: daily Smoking Status (MU): Never Smoked Tobacco Amount Used/How Often: 0 Have You Smoked in the Last Year: No Review of Systems Negative: Fever, Chills Negative: Chest Pain Negative: Shortness Of Breath Negative: Abdominal Pain, Vomiting, Nausea Negative: incontinence - urinary or bowel Musculoskeletal: Other - POS: back pain Negative: Headache All Other Systems Reviewed And Are Negative: No Physical Exam - Summary Physical Exam Summary: Appearance: Alert, conversive, nontoxic appearing Skin: Warm, dry, no mottling, no rashes, no contusions HEENT: EOMI, PERRL, moist mucous membranes Neck: No masses on the neck, supple Respiratory: Clear to auscultation, breath sounds present, no rales, no rhonchi , no wheezes Cardiovascular: RRR, pulses are symmetrical in both lower and upper extremities Abdomen: Soft, non-tender Bowel Sounds: Present Musculoskeletal: No CVA tenderness, no obvious deformity, moving all extremities in a grossly normal manner. A lot of paraspinal muscle tenderness on her back. No midline tenderness Neurological: A&Ox3, CN II-XII Intact, moving all extremities symmetrically Psychiatric: anxious. Triage Information Reviewed: Yes Vital Signs On Initial Exam: Initial Vitals Temp Pulse Resp BP Pulse Ox 98.5 F 83 16 140/70 99 10/17/18 13:48 10/17/18 13:48 10/17/18 13:48 10/17/18 13:48 10/17/18 13:48 Vital Signs Reviewed: Yes Diagnostics - Vital Signs Vital Signs Temp Pulse Resp BP Pulse Ox 10/17/18 13:48 98.5 F 83 16 140/70 99 - Laboratory Lab Statement: Any lab studies that have been ordered have been reviewed, and results considered in the medical decision making process. - Radiology Lumbar spine XR Radiology Interpretation Completed By: ED Physician - negative XR, Radiologist Summary of Radiographic Findings: IMPRESSION: No radiographic evidence for traumatic lumbar sacral spine injury. Negative exam. Dr. Baxter has reviewed this report. Re-Evaluation - Re-Evaluation First Eval Re-Evaluation Time: 15:44 Comment: I reviewed negative XR results with pt. She will be discharged home. Adult Trauma Course/Dx - Course Assessment/Plan: Pt is a 33 y/o female who presents with back pain s/o slipping and falling today. Pt reports she was walking her dog today when she slipped on ice and fell. She notes she landed on her right side and hit her back. Denies head strike or LOC. Pt was given Tylenol, Toradol, and Flexeril. Lumbar spine XR shows no radiographic evidence for traumatic lumbar sacral spine injury. Negative exam. She was advised to use Motrin and Tylenol for the pain. Pt will be discharged home with follow up from her PCP and prescription for Flexeril. She is instructed to return to the ED for any worsening or new symptoms. - Diagnoses Provider Diagnoses: Muscle strain Discharge - Sign-Out/Discharge Documenting (check all that apply): Patient Departure - Discharge home - Discharge Plan Condition: Stable Disposition: HOME Prescriptions: Cyclobenzaprine TAB* [Flexeril 10 MG TAB*] 10 mg PO TID PRN #30 tab PRN Reason: Pain Patient Education Materials: Muscle Strain (ED) Forms: *Work Release Referrals: Thien Mathis MD [Primary Care Provider] - Additional Instructions: Take tylenol and motrin for pain. you may take flexeril as instructed for muscle strain. avoid any heavy lifting. return if worse or any new symptoms. - Billing Disposition and Condition Condition: STABLE Disposition: Home - Attestation Statements Document Initiated by Scribe: Yes Documenting Scribe: Amanda Franklin Provider For Whom Luca is Documenting (Include Credential): Silvia Baxter MD Scribe Attestation: Amanda Sinha, scribed for Silvia Baxter MD on 10/17/18 at 1808. Scribe Documentation Reviewed: Yes Provider Attestation: The documentation as recorded by the Amanda lopez accurately reflects the service I personally performed and the decisions made by me, Silvia Baxter MD Status of Scribe Document: Viewed
[2018-10-17] MEDS ORDERED: Cyclobenzaprine TAB* 10 MG PO ONE (14:55)
[2018-10-17] MEDS ORDERED: Ketorolac INJ* 60 MG/2 ML VIAL IM ONE (14:55)
[2018-10-17] MEDS ORDERED: Acetaminophen TAB* 325 MG PO ONE (14:56)
[2018-10-17 16:15] VITALS: BP 122/73
== END 2018-10-17 16:13 | disposition home or self-care (01) ==
LOC: ED 13:43
DX: S39.012A Strain of muscle, fascia and tendon of lower back, initial encounter (principal); W00.0XXA Fall on same level due to ice and snow, initial encounter; Y93.K1 Activity, walking an animal; Y92.9 Unspecified place or not applicable
CPT/HCPCS: 72110; 96372; 99282; A9270-GY; J1885

== ENCOUNTER 2018-11-06 14:49 | Emergency (ER) | payer OTHER ==
[2018-11-06] MEDS ORDERED: NS 0.9% 1000 ML** 1,000 ML IV ONE (14:55)
--- NOTE | 2018-11-06 14:57 | ED ---
Syncope/Near Syncope - HPI Summary HPI Summary: Pt is a 33 y/o female brought in by EMS who presents to the ED s/p possibly syncope or seizure. As per EMS, she was at work when she suddenly fell to the floor with what seemed like a syncopal episode. Pt then woke up after 1 minute but did not seem fully conscious. Witnesses deny any seizure activity, however upon EMS arrival pt seemed post-ictal, as she was not oriented x3. As per EMS, pts blood sugar was 101 and she is tachycardic. Pt feels normal now, but she does not recall the episode. She denies any CP, SOB, LEO, numbness, weakness, nausea, lightheadedness, or dizziness. Pt denies any head or neck injury, and is not . She smokes marijuana daily, however did not smoke today. - History Of Current Complaint Hx Obtained From: Patient, EMS Onset/Duration: Sudden Onset, Resolved Timing: Intermittent Episode Lasting Context: Witnessed Associated Head Trauma: No Aggravating Factor(s): Nothing Alleviating Factor(s): Spontaneous Resolution Associated Signs And Symptoms: Seizure - possible - Allergies/Home Medications Allergies/Adverse Reactions: Allergies Allergy/AdvReac Type Severity Reaction Status Date / Time No Known Allergies Allergy Verified 10/12/18 18:47 PMH/Surg Hx/FS Hx/Imm Hx Endocrine/Hematology History: Denies: Hx Diabetes, Hx Thyroid Disease Cardiovascular History: Denies: Hx Congestive Heart Failure, Hx Hypertension Respiratory History: Denies: Hx Asthma, Hx Chronic Obstructive Pulmonary Disease (COPD) GI History: Reports: Other GI Disorders - RUQ pain s/p gastric bypass in june 2012 Denies: Hx Ulcer History: Denies: Hx Renal Disease, Other Problems/Disorders Sensory History: Denies: Hx Contacts or Glasses, Hx Hearing Aid Opthamlomology History: Denies: Hx Contacts or Glasses Neurological History: Denies: Hx Headaches, Hx Migraine, Hx Seizures Psychiatric History: Denies: Hx Anxiety - NOTHING APPLIES ON WHOLE FRONT OF FORM, Hx Depression, Hx Bipolar Disorder - Surgical History Surgery Procedure, Year, and Place: X 3; GASTRIC BYPASS 06/2012; Diagnotic Lap (Internal Hernia) 01/05, tummy tuck Hx Anesthesia Reactions: No - Immunization History Date of Tetanus Vaccine: unknown Date of Influenza Vaccine: 2011 Infectious Disease History: Denies: Hx Hepatitis, Hx Human Immunodeficiency Virus (HIV), History Other Infectious Disease - Family History Known Family History: Negative: Cardiac Disease, Hypertension, Diabetes, Seizure Disorder - Social History Alcohol Use: Occasionally Alcohol Amount: MAYBE 1-2 DRINKS/MONTH Hx Substance Use: Yes Substance Use Type: Reports: Marijuana Substance Use Comment - Amount & Last Used: daily Hx Tobacco Use: No Smoking Status (MU): Never Smoked Tobacco Amount Used/How Often: 0 Have You Smoked in the Last Year: No Review of Systems Negative: Chest Pain Negative: Shortness Of Breath Negative: Nausea Neurological: Other - disoriented, NEGATIVE: lightheadedness, dizziness Positive: Syncope. Negative: Headache, Weakness, Numbness All Other Systems Reviewed And Are Negative: Yes Physical Exam - Summary Physical Exam Summary: Appearance: Well appearing, no pain distress Skin: warm, lightly diaphoretic, reflects adequate perfusion, abrasion over right brow Head/face: normal Eyes: EOMI, DAMARIS ENT: mucous membranes moist Neck: supple, non-tender Respiratory: CTA, breath sounds present Cardiovascular: tachycardic but regular rhythm, pulses symmetrical Abdomen: non-tender, soft Bowel Sounds: present Musculoskeletal: normal, strength/ROM intact Neuro: normal, sensory motor intact, A&Ox3 GCS: 15 Triage Information Reviewed: Yes Vital Signs Reviewed: Yes Diagnostics - Laboratory Result Diagrams: 11/06/18 15:22 11/06/18 15:22 Lab Statement: Any lab studies that have been ordered have been reviewed, and results considered in the medical decision making process. - CT Brain CT CT Interpretation Completed By: Radiologist Summary of CT Findings: Normal CT of the brain. ED physician reviewed radiology report. - EKG 14:56 Cardiac Rate: NL - 92 bpm EKG Rhythm: Sinus Rhythm ST Segment: Normal Summary of EKG Findings: Nl axis, nl intervals Course/Dx Course Of Treatment: Nurse's notes reviewed. Patient appeared to have syncopal episode by history however there is also a potential for postictal phase where she was confused her 5-10 minutes following. She return to normal baseline. There is no witnessed seizure activity. She was not incontinent. Head CT and laboratories aside from a mildly elevated lactate are normal. Discussed the case with neurology who agrees with outpatient EEG. Mother had history of similar workup for syncope in the past. No family history for seizure. Discharged in good condition. - Diagnoses Differential Diagnosis/HQI/PQRI: Positive: Metabolic Reaction, Medication Reaction, Seizure, Vasovagal Episode Provider Diagnoses: Syncope - Physician Notifications Discussed Care of Patient With: Brodie Tse Time Discussed With Above Provider: 16:12 Instructed by Provider To: Have Pt Call For Appt. - Have pt call tomorrow to schedule an outpatient EEG. Discharge - Sign-Out/Discharge Documenting (check all that apply): Patient Departure - Discharge Patient Received Moderate/Deep Sedation with Procedure: No - Discharge Plan Condition: Improved Disposition: HOME Patient Education Materials: Syncope (ED) Forms: *Work Release Referrals: Brodie Tse MD [Medical Doctor] - Thien Mathis MD [Primary Care Provider] - Additional Instructions: Do not drive until cleared by physician. Return if worse, passing out, seizure activity, new symptoms or other concerns. - Billing Disposition and Condition Condition: IMPROVED Disposition: Home - Attestation Statements Document Initiated by Scribe: Yes Documenting Scribe: Anita Herbert Provider For Whom Scribe is Documenting (Include Credential): Xavier Barroso MD Scribe Attestation: Anita Sinha, scribed for Xavier Barroso MD on 11/06/18 at 1755. Scribe Documentation Reviewed: Yes Provider Attestation: The documentation as recorded by the Anita lopez accurately reflects the service I personally performed and the decisions made by me, Xavier Barroso MD Status of Scribe Document: Viewed
[2018-11-06 15:29] LABS: ABS Basophils 0.1 10^3/ul (0-0.2); ABS Eosinophils 0.3 10^3/ul (0-0.6); ABS Lymphocytes 1.8 10^3/ul (1.0-4.8); ABS Monocytes 0.3 10^3/ul (0-0.8); ABS Neutrophils 2.5 10^3/ul (1.5-7.7); ABS Nucleated RBC 0 10^3/ul; Eosinophil % 6.4 %; Hematocrit 38 % (35-47); Hemoglobin 12.1 g/dl (12.0-16.0); Lymphocyte % 35.8 %; Mean Corpuscular HGB Conc 32 g/dl (31-36); Mean Corpuscular Hemoglobin 27 pg (27-31); Mean Corpuscular Volume 86 fL (80-97); Mean Platelet Volume 8.6 fL (7.4-10.4); Nucleated Red Blood Cells % 0.1; Platelet Count 242 10^3/ul (150-450); Red Blood Count 4.41 10^6/ul (4.00-5.40); Red Cell Distribution Width 15 % (10.5-15)
[2018-11-06 15:46] LABS: ALT 32 U/L (7-52); AST 46 U/L (13-39); Albumin/Globulin Ratio 1.2 (1-3); Alkaline Phosphatase 51 U/L (34-104); Anion Gap 5 mmol/L (2-11); BUN/Creatinine Ratio 19.2 (8-20); Blood Urea Nitrogen 15 mg/dL (6-24); CO2 Carbon Dioxide 25 mmol/L (22-32); Calcium 8.7 mg/dL (8.6-10.3); Chloride 107 mmol/L (101-111); Creatine Kinase 124 U/L (10-223); EGFR African American 103.6 (>60); EGFR Non-African American 85.6 (>60); Globulin 3.3 g/dL (2-4); Glucose 92 mg/dL (70-100); Magnesium 1.8 mg/dL (1.9-2.7); Potassium 4.4 mmol/L (3.5-5.0); Sodium 137 mmol/L (135-145); Total Protein 7.3 g/dL (6.4-8.9)
[2018-11-06 15:52] LABS: Alcohol < 10 mg/dL (<10)
[2018-11-06] MEDS ORDERED: Ibuprofen TAB* 400 MG ONE (16:07)
[2018-11-06] MEDS ORDERED: Ibuprofen TAB* 400 MG PO ONE (16:09)
[2018-11-06 17:10] VITALS: BP 136/87
== END 2018-11-06 17:10 | disposition home or self-care (01) ==
LOC: ED 14:49
DX: R55 Syncope and collapse (principal)
CPT/HCPCS: 36415; 70450; 80053; 80320; 82550; 83605; 83735; 85025; 85610; 93005; 96360; 99283; A9270-GY; G0480

== ENCOUNTER 2019-01-23 09:48 | Emergency (ER) | payer OTHER ==
[2019-01-23 10:09] VITALS: BP 127/80
[2019-01-23] MEDS ORDERED: Ketorolac INJ* 60 MG/2 ML VIAL IM ONE (10:47)
--- NOTE | 2019-01-23 11:05 | UC ---
Headache HPI - HPI Summary HPI Summary: PATIENT HAS A HISTORY OF MIGRAINE HEADACHES BUT STATES SHE GETS THEM RARELY MAYBE ONCE A YEAR. HAS HAD A MIGRAINE TYPE HEADACHE FOR ABOUT A WEEK NOW. PAIN IS LOCATED FRONTALLY AND ON THE RIGHT TEMPORAL REGION. SHE IS UNABLE TO DESCRIBE THE PAIN BUT SAYS THE RIGHT SIDE OF HER FACE FEELS SLIGHTLY NUMB. SHE HAS PHOTOPHOBIA AND PHONOPHOBIA. DENIES ANY NAUSEA OR VISUAL DISTURBANCE. STATES SHE HAD AN EPISODE OF SYNCOPE ABOUT 2 MONTHS AGO WITH A FULL WORKUP INCLUDING IMAGING AT THAT TIME THAT WAS NEGATIVE. [place] BUT HAS NOT SEEN HIM SINCE THEN. SHE HAS NOT TAKEN ANY MEDICATION FOR PAIN. - History Of Current Complaint Chief Complaint: CHRYSTALeadonna Stated Complaint: SEVER HEADACHE /FACE TIGHTING Time Seen by Provider: 01/23/19 10:32 Hx Obtained From: Patient Hx Last Menstrual Period: 4weeks ago Onset/Duration: Gradual Onset, Lasting Days, Still Present Initially Headache Was: Moderate Currently Pain Is: Moderate Pain Intensity: 8 Pain Scale Used: 0-10 Numeric Timing: Constant Character: Unable To Describe Location of Headache: Frontal, Temporal - RIGHT Aggravating Factor(s): Bright Lights Allevating Factor(s): Nothing Associated Signs And Symptoms: Positive: Dizziness. Negative: Nausea, Vomiting , Fever, Neck Pain, Neck Stiffness - Allergies/Home Medications Allergies/Adverse Reactions: Allergies Allergy/AdvReac Type Severity Reaction Status Date / Time No Known Allergies Allergy Verified 11/27/18 11:43 PMH/Surg Hx/FS Hx/Imm Hx Neurological History: Migraine - Surgical History Surgical History: Yes Surgery Procedure, Year, and Place: X 3; GASTRIC BYPASS 06/2012; Diagnotic Lap (Internal Hernia) 01/05, [facility] - Family History Known Family History: Negative: Cardiac Disease, Hypertension, Diabetes, Seizure Disorder - Social History Alcohol Use: Occasionally Alcohol Amount: MAYBE 1-2 DRINKS/MONTH Substance Use Type: Marijuana Substance Use Comment - Amount & Last Used: daily Smoking Status (MU): Never Smoked Tobacco Amount Used/How Often: 0 Have You Smoked in the Last Year: No - Immunization History Most Recent Influenza Vaccination: 2009 Most Recent Tetanus Shot: Unknown Most Recent Pneumonia Vaccination: Never Review of Systems All Other Systems Reviewed And Are Negative: Yes Constitutional: Positive: Negative Eyes: Positive: Photophobia ENT: Positive: Negative Respiratory: Positive: Negative Cardiovascular: Positive: Negative Gastrointestinal: Positive: Negative Neurological: Positive: Headache, Numbness Physical Exam Triage Information Reviewed: Yes Appearance: Well-Appearing, Well-Nourished, Pain Distress - MILD Vital Signs: Initial Vital Signs Temp 99.3 F 01/23/19 10:01 Pulse 89 01/23/19 10:01 Resp 16 01/23/19 10:01 BP 127/80 01/23/19 10:01 Pulse Ox 99 01/23/19 10:01 Vital Signs Reviewed: Yes Eyes: Positive: Conjunctiva Clear, Other: - PERRL, EOMI ENT: Positive: Hearing grossly normal, Pharynx normal, TMs normal Neck: Positive: Supple, Nontender, No Lymphadenopathy Respiratory Exam: Normal Cardiovascular Exam: Normal Abdomen Description: Positive: Soft Musculoskeletal: Positive: No Edema Neurological: Positive: Alert Psychological: Positive: Age Appropriate Behavior Skin: Negative: Rashes Headache Course/Dx - Course Course Of Treatment: PATIENT HAD A NEGATIVE CT SCAN OF THE HEAD 2 MONTHS AGO. OFFERED HER REPEAT SCAN GIVEN HER WORSENING HEADACHE WHICH PATIENT HAS DECLINED. 60 MG TORADOL ADMINISTERED INTRAMUSCULARLY. PATIENT STATES SHE'LL FOLLOW-UP WITH HER NEUROLOGIST SEBLE. SHE DECLINES ANY LAB WORK TODAY WELL. NEURO EXAM TODAY WAS NORMAL. WILL GO TO THE ER WITHOUT FAIL IF ANY OF HER SYMPTOMS WORSEN. - Differential Dx/Diagnosis Provider Diagnosis: Migraine headache Discharge - Sign-Out/Discharge Documenting (check all that apply): Patient Departure All imaging exams completed and their final reports reviewed: No Studies - Discharge Plan Condition: Stable Disposition: HOME Patient Education Materials: Migraine Headache (ED) Referrals: Camacho Conroy MD [Medical Doctor] - 2 Days Thien Mathis MD [Primary Care Provider] - If Needed Additional Instructions: YOU RECEIVED 60MG TORADOL INTRAMUSCULARLY TODAY. CALL NEURO TODAY TO SCHEDULE A FOLLOW-UP APPT. GO TO THE ED WITHOUT FAIL IF YOU DEVELOP WORSENING HEADACHE, UNEQUAL PUPILS, VISUAL DISTURBANCE, GAIT INSTABILITY, SPEECH DIFFICULTY, NAUSEA/VOMITING, DIZZINESS, CONFUSION, WEAKNESS OR ANY OTHER CONCERNING SYMPTOMS. - Billing Disposition and Condition Condition: STABLE Disposition: Home
== END 2019-01-23 11:10 | disposition home or self-care (01) ==
LOC: UCEAST 09:48
DX: G43.909 Migraine, unspecified, not intractable, without status migrainosus (principal); R42 Dizziness and giddiness
CPT/HCPCS: 99212; G0463; J1885

== ENCOUNTER → 2019-02-07 18:52 | Emergency (ER) | payer OTHER ==
[~2019-02-07 18:52] MED LIST changes: -Buffered Lidocaine 0.9% SYRIN* 5 ML/SYR SYRINGE INTRADERM ONE; -Dexamethasone IV* 4 MG/ML 1 ML (4 MG) IV SLOW PU ONE; -Famotidine IV* 10 MG/ML 2 ML (20 mg) IV ONE; +Ketorolac INJ* 30 MG/ML 1 ML VIAL IV PUSH ONE; +Metoclopramide IV* 5 MG/ML 2 ML VIAL IV SLOW PU ONE; +NS 0.9% 1000 ML** 1,000 ML IV ONE; +diPHENhydraMINE IV* 50 MG/ML 1 ml VIAL (BENADRYL) SLOW PUSH ONE; +levETIRAcetam 1000MG IVPREMIX* 1,000 MG/100 ML BAG IVPB SCH
--- NOTE | 2019-02-07 19:20 | ED ---
Neurological HPI - HPI Summary HPI Summary: 34 year old F brought in by EMS to [facility] with a chief complaint of witnessed seizure activity since resolved while working at [employer] two hours ago. The patient rates the pain 1/10 in severity. Symptoms aggravated by nothing. Symptoms alleviated by nothing. Per nurse, coworkers saw patient was shaking and unresponsive. Per EMS, patient hit her head on a wall and bit her tongue. Patient reports laceration on her tongue. Patient reports headache. Patient denies urinary incontinence. Patient does not remember anything about the incidence but remembers that she stayed home this morning and went to work at 14 :00 today. Patient was seen in the ED in November 2018 for similar symptoms. She had a brain MRI done which was normal. Patient saw Dr. Tse a few weeks ago, and he prescribed her Topiramate 25mg once a day. Patient states she took it for 2-3 days then stopped because she was dizzy and having palpitations. - History of Current Complaint Chief Complaint: EDSeizure Stated Complaint: SEIZURE PER EMS Time Seen by Provider: 02/07/19 19:12 Hx Obtained From: Patient, EMS, Other: - nurse, coworkers Onset/Duration: Started hours ago - 2, Resolved Timing: Constant Current Severity: Mild Pain Intensity: 1 Pain Scale Used: 0-10 Numeric Aggravating: Nothing Alleviating: Nothing - Allergy/Home Medications Allergies/Adverse Reactions: Allergies Allergy/AdvReac Type Severity Reaction Status Date / Time No Known Allergies Allergy Verified 11/27/18 11:43 PMH/Surg Hx/FS Hx/Imm Hx Previously Healthy: No Endocrine/Hematology History: Denies: Hx Diabetes, Hx Thyroid Disease Cardiovascular History: Denies: Hx Congestive Heart Failure, Hx Hypertension, Hx Pacemaker/ICD Respiratory History: Denies: Hx Asthma, Hx Chronic Obstructive Pulmonary Disease (COPD) GI History: Reports: Other GI Disorders - RUQ pain s/p gastric bypass in june 2012 Denies: Hx Ulcer History: Denies: Hx Renal Disease, Other Problems/Disorders Sensory History: Denies: Hx Contacts or Glasses, Hx Hearing Aid Opthamlomology History: Denies: Hx Contacts or Glasses Neurological History: Reports: Hx Headaches, Hx Migraine, Hx Seizures Psychiatric History: Denies: Hx Anxiety - NOTHING APPLIES ON WHOLE FRONT OF FORM, Hx Depression, Hx Panic Disorder, Hx Bipolar Disorder - Surgical History Surgery Procedure, Year, and Place: X 3; GASTRIC BYPASS 06/2012; Diagnotic Lap (Internal Hernia) 01/05, tummy tuck Hx Anesthesia Reactions: No - Immunization History Date of Tetanus Vaccine: unknown Date of Influenza Vaccine: 2011 Infectious Disease History: No Infectious Disease History: Denies: Hx Hepatitis, Hx Human Immunodeficiency Virus (HIV), History Other Infectious Disease, Traveled Outside the [place] in Last 30 Days - Family History Known Family History: Negative: Cardiac Disease, Hypertension, Diabetes, Seizure Disorder - Social History Alcohol Use: Occasionally Alcohol Amount: MAYBE 1-2 DRINKS/MONTH Hx Substance Use: Yes Substance Use Type: Reports: Marijuana Substance Use Comment - Amount & Last Used: daily Hx Tobacco Use: No Smoking Status (MU): Never Smoked Tobacco Amount Used/How Often: 0 Have You Smoked in the Last Year: No Review of Systems ENT: Other - tongue bite Negative: incontinence Neurological: Other - witnessed seizure activity since resolved Positive: Headache All Other Systems Reviewed And Are Negative: Yes Physical Exam - Summary Physical Exam Summary: VITAL SIGNS: Reviewed. GENERAL: Patient is a well-developed and nourished FEMALE who is lying comfortable in the stretcher. Patient is not in any acute respiratory distress. HEAD AND FACE: No signs of trauma. No ecchymosis, hematomas or skull depressions. No sinus tenderness. EYES: PERRLA, EOMI x 2, No injected conjunctiva, no nystagmus. EARS: Hearing grossly intact. Ear canals and tympanic membranes are within normal limits. MOUTH: Patient has a tongue bite on the right side of the right tongue margin, mid-way NECK: Supple, trachea is midline, no adenopathy, no JVD, no carotid bruit, no c- spine tenderness, neck with full ROM CHEST: Symmetric, no tenderness at palpation LUNGS: Clear to auscultation bilaterally. No wheezing or crackles. CVS: Regular rate and rhythm, S1 and S2 present, no murmurs or gallops appreciated. ABDOMEN: Soft, non-tender. No signs of distention. No rebound no guarding, and no masses palpated. Bowel sounds are normal. EXTREMITIES: FROM in all major joints, no edema, no cyanosis or clubbing. NEURO: Alert and oriented x 3. No acute neurological deficits. Speech is normal and follows commands. SKIN: Dry and warm Triage Information Reviewed: Yes Vital Signs On Initial Exam: Initial Vitals Temp Pulse Resp BP Pulse Ox 98.5 F 99 17 125/91 97 02/07/19 18:54 02/07/19 18:54 02/07/19 18:54 02/07/19 18:54 02/07/19 18:54 Vital Signs Reviewed: Yes Diagnostics - Vital Signs Vital Signs Temp Pulse Resp BP Pulse Ox 02/07/19 19:00 103 20 98 02/07/19 18:58 106 97 02/07/19 18:57 111 125/91 97 02/07/19 18:54 98.5 F 99 17 125/91 97 - Laboratory Result Diagrams: 02/07/19 19:49 02/07/19 19:49 Lab Statement: Any lab studies that have been ordered have been reviewed, and results considered in the medical decision making process. - EKG 2008 Cardiac Rate: NL - 70 BPM EKG Rhythm: Sinus Rhythm Ectopy: None Summary of EKG Findings: Normal axis. Normal interval. No ischemic changes. Re-Evaluation - Re-Evaluation First Eval Re-Evaluation Time: 21:27 Comment: Patient feels better. Discussed discharge plan. She is agreeable. Course/Dx - Course Course Of Treatment: 34 year old F complains of tongue bite, headache s/p witnessed seizure activity while working at [employer] two hours ago. Per nurse, coworkers saw patient was shaking and unresponsive. Per EMS, patient hit her head on a wall and bit her tongue. Patient was seen in the ED in November 2018 for similar symptoms, after which she had a brain MRI done which was normal. Patient saw Dr. Tse a few weeks ago, and he prescribed her Topiramate 25mg once a day, which patient took for 2-3 days before stopping because it was making her dizzy and giving her palpitations. In ED course, patient was given Benadryl, Keppra, Toradol, Reglan, and IV fluids. EKG is normal. Test results with no significant abnormalities. Patient will be discharged home with follow up from her neurologist, Dr. Tse. She was given a prescription for Keppra. Patient was instructed to return to ED for new or worsening symptoms. She was told not to drive or operate heavy machinery until she was cleared by Dr. Tse. Patient is agreeable with the discharge plan. - Diagnoses Provider Diagnoses: Seizure Discharge - Sign-Out/Discharge Documenting (check all that apply): Patient Departure - Discharge Patient Received Moderate/Deep Sedation with Procedure: No - Discharge Plan Condition: Stable Disposition: HOME Prescriptions: levETIRAcetam TAB* [Keppra TAB*] 500 mg PO BID #60 tab Patient Education Materials: Recurrent Seizures in Adults (ED) Referrals: Broide Tse MD [Medical Doctor] - 02/08/19 Additional Instructions: Follow up with Dr. Tse, neurology, tomorrow, 02/08/19. Do not drive or operate heavy machinery until you are cleared by Dr. Tse. PLEASE RETURN TO THE ED IMMEDIATELY FOR WORSENING OR CONCERNING SYMPTOMS. - Attestation Statements Document Initiated by Scribe: Yes Documenting Scribe: Gayle Newman Provider For Whom Scribe is Documenting (Include Credential): Ema Nazario MD Scribe Attestation: Gayle Sinha, scribed for Ema Nazario MD on 02/07/19 at 2480. Status of Scribe Document: Ready
[2019-02-07 20:01] LABS: ABS Basophils 0.1 10^3/ul (0-0.2); ABS Eosinophils 0.1 10^3/ul (0-0.6); ABS Lymphocytes 1.8 10^3/ul (1.0-4.8); ABS Monocytes 0.4 10^3/ul (0-0.8); ABS Neutrophils 2.2 10^3/ul (1.5-7.7); Eosinophil % 2.7 %; Hematocrit 37 % (35-47); Mean Corpuscular HGB Conc 32 g/dL (31-36); Mean Corpuscular Hemoglobin 27 pg (27-31); Mean Corpuscular Volume 84 fL (80-97); Mean Platelet Volume 9.1 fL (7.4-10.4); Nucleated Red Blood Cells % 0.1; Platelet Count 228 10^3/uL (150-450); Red Blood Count 4.48 10^6 /uL (3.70-4.87); Red Cell Distribution Width 18 % (10.5-15); White Blood Count 4.5 10^3/uL (3.5-10.8)
[2019-02-07 20:17] LABS: ALT 16 U/L (7-52); AST 32 U/L (13-39); Albumin/Globulin Ratio 1.2 (1-3); Alkaline Phosphatase 47 U/L (34-104); Anion Gap 7 mmol/L (2-11); BUN/Creatinine Ratio 13.8 (8-20); Blood Urea Nitrogen 12 mg/dL (6-24); CO2 Carbon Dioxide 23 mmol/L (22-32); Calcium 8.8 mg/dL (8.6-10.3); Chloride 107 mmol/L (101-111); EGFR African American 90.7 (>60); Globulin 3.3 g/dL (2-4); Glucose 97 mg/dL (70-100); Magnesium 1.8 mg/dL (1.9-2.7); Sodium 137 mmol/L (135-145); Total Protein 7.3 g/dL (6.4-8.9)
[2019-02-07 20:24] LABS: HCG Pregnancy < 0.60 mIU/mL
[2019-02-07 21:06] LABS: TSH (Thyroid Stimulating Horm) 1.64 mcIU/mL (0.34-5.60)
[2019-02-07 21:51] VITALS: BP 103/60
== END | disposition home or self-care (01) ==
LOC: ED 18:52
DX: G40.909 Epilepsy, unspecified, not intractable, without status epilepticus (principal); R51 Headache; Z98.84 Bariatric surgery status
CPT/HCPCS: 36415; 80053; 83735; 84443; 84702; 85025; 93005; 96361; 96365; 96375; 99284; J1200; J1885; J1953; J2765

== ENCOUNTER 2019-04-19 21:12 | Emergency (ER) | payer OTHER ==
[2019-04-19 21:20] VITALS: BP 121/89
== END 2019-04-19 23:03 | disposition left against medical advice (07) ==
LOC: ED 21:12
DX: R20.0 Anesthesia of skin (principal); Z53.21 Procedure and treatment not carried out due to patient leaving prior to being seen by health care provider
CPT/HCPCS: 93005; 99281

== ENCOUNTER 2019-06-13 21:47 | Emergency (ER) | payer OTHER ==
[2019-06-13] MEDS ORDERED: diPHENhydraMINE IV* 50 MG/ML 1 ml VIAL (BENADRYL) IV ONE (22:08)
[2019-06-13] MEDS ORDERED: Ketorolac INJ* 30 MG/ML 1 ML VIAL IV ONE (22:08)
[2019-06-13] MEDS ORDERED: PROCHLORPERAZINE INJ 5 MG/ML 2 ML VIAL IV ONE (22:09)
[2019-06-13] MEDS ORDERED: NS 0.9% 1000 ML** 1,000 ML IV ONE (22:09)
--- NOTE | 2019-06-13 22:13 | ED ---
Headache - HPI Summary HPI Summary: The pt is a 34 yr old female [facility]/o headache beginning 4 days [employer]. She states that her migraine has been so severe that she has only been able to sleep and has not been able to go to work at all. She rates her current pain severity due to her headache a 10/10. She notes that bright lights aggravate her symptoms. No alleviating factors noted. She also reports blurry vision but denies any fever or neck pain. She has Hx of migraines. Allergies noted. Medications reviewed. - History Of Current Complaint Chief Complaint: EDHeadache Stated Complaint: HEADACHE, DIZZY PER PT Time Seen by Provider: 06/13/19 21:59 Hx Obtained From: Patient Hx Last Menstrual Period: 4weeks ago Onset/Duration: Started days ago - 4, Still Present Initially Headache Was: Initial Pain Scale(0-10)= - 10, Severe Currently Pain Is: Current Pain Scale(0-10)= - 10, Severe Timing: Constant Location of Headache: Diffuse Aggravating Factor: Bright Lights Allevating Factors: Nothing Associated Signs And Symptoms: Negative - Fever, neck pain, Visual Changes - blurry vision - Allergies/Home Medications Allergies/Adverse Reactions: Allergies Allergy/AdvReac Type Severity Reaction Status Date / Time No Known Allergies Allergy Verified 05/18/19 13:58 PMH/Surg Hx/FS Hx/Imm Hx Endocrine/Hematology History: Denies: Hx Diabetes, Hx Thyroid Disease Cardiovascular History: Denies: Hx Congestive Heart Failure, Hx Hypertension, Hx Pacemaker/ICD Respiratory History: Denies: Hx Asthma, Hx Chronic Obstructive Pulmonary Disease (COPD) GI History: Reports: Other GI Disorders - RUQ pain s/p gastric bypass in june 2012 Denies: Hx Ulcer History: Denies: Hx Renal Disease, Other Problems/Disorders Sensory History: Denies: Hx Contacts or Glasses, Hx Hearing Aid Opthamlomology History: Denies: Hx Contacts or Glasses Neurological History: Reports: Hx Headaches, Hx Migraine, Hx Seizures Psychiatric History: Denies: Hx Anxiety - NOTHING APPLIES ON WHOLE FRONT OF FORM, Hx Depression, Hx Panic Disorder, Hx Bipolar Disorder - Surgical History Surgery Procedure, Year, and Place: X 3; GASTRIC BYPASS 06/2012; Diagnotic Lap (Internal Hernia) 01/05, tummy tuck Hx Anesthesia Reactions: No - Immunization History Date of Tetanus Vaccine: unknown Date of Influenza Vaccine: 2011 Infectious Disease History: No Infectious Disease History: Denies: Hx Hepatitis, Hx Human Immunodeficiency Virus (HIV), History Other Infectious Disease, Traveled Outside the [place] in Last 30 Days - Family History Known Family History: Negative: Cardiac Disease, Hypertension, Diabetes, Seizure Disorder - Social History Alcohol Use: Occasionally Alcohol Amount: MAYBE 1-2 DRINKS/MONTH Hx Substance Use: Yes Substance Use Type: Reports: Marijuana Substance Use Comment - Amount & Last Used: daily Hx Tobacco Use: No Smoking Status (MU): Never Smoked Tobacco Amount Used/How Often: 0 Have You Smoked in the Last Year: No Review of Systems Negative: Fever Positive: Blurred Vision Musculoskeletal: Other - neg - neck pain Positive: Headache All Other Systems Reviewed And Are Negative: Yes Physical Exam - Summary Physical Exam Summary: Constitutional: Well-developed, Well-nourished, Alert. (-) Distressed Skin: Warm, Dry HENT: Normocephalic; Atraumatic Eyes: Conjunctiva normal Neck: Musculoskeletal ROM normal neck. (-) JVD, (-) Stridor, (-) Tracheal deviation Cardio: Rhythm regular, rate normal, Heart sounds normal; Intact distal pulses; The pedal pulses are 2+ and symmetric. Radial pulses are 2+ and symmetric. (-) Murmur Pulmonary/Chest wall: Effort normal. (-) Respiratory distress, (-) Wheezes, (-) Rales Abd: Soft. (-) Tenderness, (-) Distension, (-) Guarding, (-) Rebound Musculoskeletal: (-) Edema Lymph: (-) Cervical adenopathy Neuro: Alert, Oriented x3, Strength normal, Cranial nerves II-XII are grossly intact. (-) Dysmetria, (-) Nystagmus, (-) Ataxia by finger to nose testing, (-) Sensory deficit. Psych: Mood and affect Normal Triage Information Reviewed: Yes Vital Signs On Initial Exam: Initial Vitals Temp Pulse Resp BP Pulse Ox 98 F 72 18 128/92 100 06/13/19 21:49 06/13/19 21:49 06/13/19 21:49 06/13/19 21:49 06/13/19 21:49 Vital Signs Reviewed: Yes Diagnostics - Vital Signs Vital Signs Temp Pulse Resp BP Pulse Ox 06/13/19 21:49 98 F 72 18 128/92 100 - Laboratory Lab Statement: Any lab studies that have been ordered have been reviewed, and results considered in the medical decision making process. Re-Evaluation - Re-Evaluation First Eval Re-Evaluation Time: 23:00 Change: Improved Comment: Pt's headache pain has gone down from 10/10 to a 6/10. Will continue to give the pt fluids. Second Eval Re-Evaluation Time: 23:42 Change: Improved Comment: Pt feels much better and wants to go home. Headache Course/Dx - Course Course Of Treatment: Patient is here with a progressively worsening headache for the past 4 days. Patient has a history of migraines of this feeling for typical migraine slightly worse. Patient had a normal neurologic exam with no redflag symptoms of headache. Patient was given IV fluids, Compazine, Benadryl , Toradol with fast improvement in her headache. Patient was encouraged to follow up with her neurologist in the next 1-3 days. - Diagnoses Provider Diagnoses: Headache Discharge ED - Sign-Out/Discharge Documenting (check all that apply): Patient Departure - discharge Patient Received Moderate/Deep Sedation with Procedure: No - Discharge Plan Condition: Stable Disposition: HOME Patient Education Materials: Migraine Headache (ED) Referrals: [facility] [Outside] - 3 Days Brodie Tse MD [Medical Doctor] - 3 Days Additional Instructions: Please follow up with Dr. Tse. Please return for any high fever or worsening headache. PLEASE RETURN TO EMERGENCY DEPARTMENT FOR ANY NEW OR WORSENING SYMPTOMS. Please follow up with your primary care physician. Please make all follow-ups in 1-3 days unless I advise you otherwise. - Billing Disposition and Condition Condition: STABLE Disposition: Home - Attestation Statements Document Initiated by Luca: Yes Documenting Scribe: Sarath Brennan Provider For Whom Luca is Documenting (Include Credential): Jaylen Mata MD Scribe Attestation: I, Sarath Brennan, scribed for Jaylen Mata MD on 06/14/19 at 0008. Scribe Documentation Reviewed: Yes Provider Attestation: The documentation as recorded by the Sarath lopez accurately reflects the service I personally performed and the decisions made by me, Jaylen Mata MD Status of Scribe Document: Viewed
[2019-06-14 00:21] VITALS: BP 115/70
== END 2019-06-14 00:18 | disposition home or self-care (01) ==
LOC: ED 21:47
DX: R51 Headache (principal); Z98.84 Bariatric surgery status; Z79.899 Other long term (current) drug therapy
CPT/HCPCS: 96361; 96374; 96375; 99281; J0780; J1200; J1885

== ENCOUNTER 2019-06-22 09:10 | Emergency (ER) | payer OTHER ==
--- NOTE | 2019-06-22 09:37 | ED ---
Neurological HPI - HPI Summary HPI Summary: This pt is a 34 y/o female, with hx of seizures since October 2018, presenting to [facility] via EMS s/p seizure today. Pt reports she was at one her patient's home for a visit when she had a seizure. She states she felt the seizure coming , feeling dizzy prior to seizure, and sat down on a chair. Pt notes she had a seizure and fell from the chair. Per EMS, pt fell forward striking her face on concrete floor. She is unsure if she struck her head. Pt notes she has some pain on upper front tooth and believes she might have chipped it. Pt also c/o migraine headache that she had before her seizure and has had for 2 weeks now. Denies nausea, vomiting, photophobia. Denies any other pain. Pt reports frequent seizures and was last seen in the ED on 05/18/19 for it. Patient is on Keppra for seizures and reports she is compliant. Her neurologist is Dr. Tse and has an upcoming appointment on Monday06/26/19 with him. - History of Current Complaint Chief Complaint: EDSeizure Stated Complaint: SEIZURE PER EMS Time Seen by Provider: 06/22/19 09:20 Hx Obtained From: Patient Hx Last Menstrual Period: 4weeks ago Onset/Duration: Sudden Onset, Still Present Timing: Sudden Onset Current Severity: Moderate Seizure Severity: Moderate Pain Intensity: 8 - headache Pain Scale Used: 0-10 Numeric Character: Other: - Seizure Aggravating: Nothing Alleviating: Nothing Associated Signs and Symptoms: Positive: Headache, Seizure, Pain. Negative: Visual Changes, Nausea/Vomiting, Fever Related Hx: Seizure - Allergy/Home Medications Allergies/Adverse Reactions: Allergies Allergy/AdvReac Type Severity Reaction Status Date / Time No Known Allergies Allergy Verified 05/18/19 13:58 PMH/Surg Hx/FS Hx/Imm Hx Endocrine/Hematology History: Denies: Hx Diabetes, Hx Thyroid Disease Cardiovascular History: Denies: Hx Congestive Heart Failure, Hx Hypertension, Hx Pacemaker/ICD Respiratory History: Denies: Hx Asthma, Hx Chronic Obstructive Pulmonary Disease (COPD) GI History: Reports: Other GI Disorders - RUQ pain s/p gastric bypass in june 2012 Denies: Hx Ulcer History: Denies: Hx Renal Disease, Other Problems/Disorders Sensory History: Denies: Hx Contacts or Glasses, Hx Hearing Aid Opthamlomology History: Denies: Hx Contacts or Glasses Neurological History: Reports: Hx Headaches, Hx Migraine, Hx Seizures Psychiatric History: Denies: Hx Anxiety - NOTHING APPLIES ON WHOLE FRONT OF FORM, Hx Depression, Hx Panic Disorder, Hx Bipolar Disorder - Surgical History Surgery Procedure, Year, and Place: X 3; GASTRIC BYPASS 06/2012; Diagnotic Lap (Internal Hernia) 01/05, tummy tuck Hx Anesthesia Reactions: No - Immunization History Date of Tetanus Vaccine: unknown Date of Influenza Vaccine: 2011 Infectious Disease History: No Infectious Disease History: Denies: Hx Hepatitis, Hx Human Immunodeficiency Virus (HIV), History Other Infectious Disease, Traveled Outside the [place] in Last 30 Days - Family History Known Family History: Negative: Cardiac Disease, Hypertension, Diabetes, Seizure Disorder - Social History Alcohol Use: Occasionally Alcohol Amount: MAYBE 1-2 DRINKS/MONTH Hx Substance Use: Yes Substance Use Type: Reports: Marijuana Substance Use Comment - Amount & Last Used: daily Hx Tobacco Use: No Smoking Status (MU): Never Smoked Tobacco Amount Used/How Often: 0 Have You Smoked in the Last Year: No Review of Systems Negative: Fever, Chills Negative: Photophobia ENT: Other - POSITIVE: pain on upper front tooth Negative: Vomiting, Nausea Neurological: Other - POSITIVE: seizure Positive: Headache - migraine All Other Systems Reviewed And Are Negative: Yes Physical Exam - Summary Physical Exam Summary: Appearance: The patient is well-nourished in no acute distress and in no acute pain. Skin: The skin is warm and dry, and skin color reflects adequate perfusion. HEENT: The head is normocephalic. The pupils are equal and reactive. The conjunctivae are clear and without drainage. Nares are patent and without drainage. Mouth reveals moist mucous membranes, and the throat is without erythema and exudate. The external ears are intact. The ear canals are patent and without drainage. The tympanic membranes are intact. Patient has a right central maxillary incisor with Sr 1 fracture. Neck: The neck is supple with full range of motion and non-tender. There are no carotid bruits. There is no neck vein distension. Respiratory: Chest is non-tender. Lungs are clear to auscultation and breath sounds are symmetrical and equal. Cardiovascular: Heart is regular rate and rhythm. There is no murmur or rub auscultated. There is no peripheral edema and pulses are symmetrical and equal. Abdomen: The abdomen is soft and non-tender. There are normal bowel sounds heard in all four quadrants and there is no organomegaly palpated. Musculoskeletal: There is no back tenderness noted. Extremities are non-tender with full range of motion. There is good capillary refill. There is no peripheral edema or calf tenderness elicited. Neurological: Patient is alert and oriented to person, place and time. The patient has symmetrical motor strength in all four extremities. Cranial nerves are grossly intact. Deep tendon reflexes are symmetrical and equal in all four extremities. Psychiatric: The patient has an appropriate affect and does not exhibit any anxiety or depression. Triage Information Reviewed: Yes Vital Signs On Initial Exam: Initial Vitals Temp Pulse Resp BP Pulse Ox 97.6 F 91 16 115/87 97 06/22/19 09:15 06/22/19 09:15 06/22/19 09:15 06/22/19 09:15 06/22/19 09:15 Vital Signs Reviewed: Yes Diagnostics - Vital Signs Vital Signs Temp Pulse Resp BP Pulse Ox 06/22/19 09:15 97.6 F 91 16 115/87 97 - Laboratory Lab Statement: Any lab studies that have been ordered have been reviewed, and results considered in the medical decision making process. Course/Dx - Course Course Of Treatment: Ms. Arias has had a rough course in the last few months. She has developed a new seizure disorder and migraine headaches. She is following with Dr. Tse's office monthly and has a next appointment in 4 days. She's had a headache for several days and then today he probably had a seizure. She fell forward out of the chair and chipped tooth. She has no 1 fracture of her right maxillary central incisor. Her teeth are not loose. Her jaw moves well. She has been here before for these headaches and and treated with IV fluids and a migraine cocktail of ketorolac, diphenhydramine and metoclopramide. She was given that again today and significantly improved her headache so she requested to be discharged. - Diagnoses Provider Diagnoses: Migraine Discharge ED - Sign-Out/Discharge Documenting (check all that apply): Patient Departure - Discharge home Patient Received Moderate/Deep Sedation with Procedure: No - Discharge Plan Condition: Stable Disposition: HOME Patient Education Materials: Migraine Headache (ED) Referrals: [facility] [Outside] Brodie Tse MD [Medical Doctor] - Additional Instructions: Follow up with your primary care provider in 2-3 days. If you don't have one follow up with [facility]. RETURN TO THE ED FOR ANY WORSENING OR NEW SYMPTOMS. - Billing Disposition and Condition Condition: STABLE Disposition: Home - Attestation Statements Document Initiated by Luca: Yes Documenting Scribe: Amanda Franklin Provider For Whom Luca is Documenting (Include Credential): Júnior Armenta MD Scribe Attestation: Amanda Sinha, scribed for Júnior Armenta MD on 06/22/19 at 1312. Scribe Documentation Reviewed: Yes Provider Attestation: The documentation as recorded by the Amanda lopez accurately reflects the service I personally performed and the decisions made by me, Júnior Armenta MD Status of Scribe Document: Viewed
[2019-06-22] MEDS ORDERED: Metoclopramide IV* 5 MG/ML 2 ML VIAL IV ONE (09:45)
[2019-06-22] MEDS ORDERED: diPHENhydraMINE IV* 50 MG/ML 1 ml VIAL (BENADRYL) IV ONE (09:45)
[2019-06-22] MEDS ORDERED: NS 0.9% 1000 ML** 1,000 ML IV ONE (09:45)
[2019-06-22] MEDS ORDERED: Ketorolac INJ* 30 MG/ML 1 ML VIAL IV PUSH ONE (09:45)
[2019-06-22 11:46] VITALS: BP 130/78
== END 2019-06-22 11:20 | disposition home or self-care (01) ==
LOC: ED 09:10
DX: G43.909 Migraine, unspecified, not intractable, without status migrainosus (principal); Z98.84 Bariatric surgery status; Z79.899 Other long term (current) drug therapy
CPT/HCPCS: 96361; 96374; 96375; 99284; J1200; J1885; J2765

== ENCOUNTER 2019-10-17 19:32 | Emergency (ER) | payer MEDICAID ==
[2019-10-17 20:30] LABS: ABS Basophils 0.1 10^3/ul (0-0.2); ABS Eosinophils 0.1 10^3/ul (0-0.6); ABS Lymphocytes 2.3 10^3/ul (1.0-4.8); ABS Monocytes 0.4 10^3/ul (0-0.8); ABS Neutrophils 1.9 10^3/ul (1.5-7.7); Eosinophil % 2.8 %; Hematocrit 37 % (35-47); Hemoglobin 12.3 g/dL (12.0-16.0); Lymphocyte % 47.3 %; Mean Corpuscular HGB Conc 34 g/dL (31-36); Mean Corpuscular Hemoglobin 29 pg (27-31); Mean Corpuscular Volume 87 fL (80-97); Mean Platelet Volume 8.6 fL (7.4-10.4); Nucleated Red Blood Cells % 0.1; Platelet Count 216 10^3/uL (150-450); Red Blood Count 4.22 10^6 /uL (3.70-4.87); Red Cell Distribution Width 14 % (10-15); White Blood Count 4.8 10^3/uL (3.5-10.8)
[2019-10-17 20:49] LABS: ALT 28 U/L (7-52); AST 40 U/L (13-39); Albumin 4.1 g/dL (3.2-5.2); Albumin/Globulin Ratio 1.3 (1-3); Alkaline Phosphatase 65 U/L (34-104); Anion Gap 6 mmol/L (2-11); BUN/Creatinine Ratio 12.2 (8-20); Blood Urea Nitrogen 14 mg/dL (6-24); CO2 Carbon Dioxide 25 mmol/L (22-32); Calcium 8.6 mg/dL (8.6-10.3); Chloride 106 mmol/L (101-111); EGFR African American 65.8 (>60); EGFR Non-African American 54.3 (>60); Globulin 3.1 g/dL (2-4); Glucose 94 mg/dL (70-100); Potassium 4.2 mmol/L (3.5-5.0); Sodium 137 mmol/L (135-145); Total Protein 7.2 g/dL (6.4-8.9)
[2019-10-17 20:54] LABS: HCG Pregnancy < 0.60 mIU/mL
--- NOTE | 2019-10-17 23:01 | ED ---
Abdominal Pain/Female - HPI Summary HPI Summary: 34-year-old female presents to the emergency department today complaining of 10 out of 10 left lower quadrant pain which feels like "something about to burst" 3 days. Patient states she has associated nausea and vomiting. Patient denies surgical history. Patient has not taken any medication prior to arrival for alleviation of her symptoms. Patient states earlier today she went to [facility] for the symptoms and they stated she had vaginal discharge and they sent culture swabs. Patient otherwise feels well and denies fever, chest pain, shortness breath, vaginal bleeding, rash, pain with urination. Surgical history and family history noncontributory. - History of Current Complaint Chief Complaint: EDAbdPain Stated Complaint: ABD PAIN PER PT Time Seen by Provider: 10/17/19 22:43 Hx Obtained From: Patient Hx Last Menstrual Period: 4weeks ago Onset/Duration: Gradual Onset Timing: Constant Severity Initially: Severe Severity Currently: Severe Pain Intensity: 9 Pain Scale Used: 0-10 Numeric Location: Discrete At: LLQ Radiates: No Character: Sharp, Cramping Aggravating Factor(s): Movement Associated Signs and Symptoms: Positive: Vaginal Discharge. Negative: Fever, Back Pain, Blood in Stool, Urinary Symptoms, Vaginal Bleeding, Nausea, Vomiting , Diarrhea Allergies/Adverse Reactions: Allergies Allergy/AdvReac Type Severity Reaction Status Date / Time No Known Allergies Allergy Verified 10/17/19 19:43 PMH/Surg Hx/FS Hx/Imm Hx Endocrine/Hematology History: Denies: Hx Diabetes, Hx Thyroid Disease Cardiovascular History: Denies: Hx Congestive Heart Failure, Hx Hypertension, Hx Pacemaker/ICD Respiratory History: Denies: Hx Asthma, Hx Chronic Obstructive Pulmonary Disease (COPD) GI History: Reports: Other GI Disorders - RUQ pain s/p gastric bypass in june 2012 Denies: Hx Ulcer History: Denies: Hx Renal Disease, Other Problems/Disorders Sensory History: Denies: Hx Contacts or Glasses, Hx Hearing Aid Opthamlomology History: Denies: Hx Contacts or Glasses Neurological History: Reports: Hx Headaches, Hx Migraine, Hx Seizures Psychiatric History: Denies: Hx Anxiety - NOTHING APPLIES ON WHOLE FRONT OF FORM, Hx Depression, Hx Panic Disorder, Hx Bipolar Disorder - Surgical History Surgery Procedure, Year, and Place: X 3; GASTRIC BYPASS 06/2012; Diagnotic Lap (Internal Hernia) 01/05, [facility] Hx Anesthesia Reactions: No - Immunization History Date of Tetanus Vaccine: unknown Date of Influenza Vaccine: 2011 Infectious Disease History: No Infectious Disease History: Denies: Hx Hepatitis, Hx Human Immunodeficiency Virus (HIV), History Other Infectious Disease, Traveled Outside the [place] in Last 30 Days - Family History Known Family History: Negative: Cardiac Disease, Hypertension, Diabetes, Seizure Disorder - Social History Alcohol Use: Occasionally Alcohol Amount: MAYBE 1-2 DRINKS/MONTH Hx Substance Use: Yes Substance Use Type: Reports: Marijuana Substance Use Comment - Amount & Last Used: daily Hx Tobacco Use: No Smoking Status (MU): Never Smoked Tobacco Amount Used/How Often: 0 Have You Smoked in the Last Year: No Review of Systems Constitutional: Negative Eyes: Negative ENT: Negative Cardiovascular: Negative Respiratory: Negative Positive: Abdominal Pain. Negative: Vomiting, Diarrhea, Nausea Genitourinary: Negative Musculoskeletal: Negative Skin: Negative Neurological: Negative Psychological: Normal All Other Systems Reviewed And Are Negative: Yes Physical Exam - Summary Physical Exam Summary: Inspection of the abdomen reveals no ecchymosis or masses. Auscultation reveals normoactive bowel sounds. Palpation reveals mild tenderness with palpation of the left lower quadrant. Negative Rovsing, obturator, McBurney's, Reynoso's sign Triage Information Reviewed: Yes Vital Signs On Initial Exam: Initial Vitals Temp Pulse Resp BP Pulse Ox 100.1 F 96 18 140/76 98 10/17/19 19:43 10/17/19 19:43 10/17/19 19:43 10/17/19 19:43 10/17/19 19:43 Vital Signs Reviewed: Yes Appearance: Positive: Well-Appearing, No Pain Distress, Well-Nourished Skin: Positive: Warm, Skin Color Reflects Adequate Perfusion Head/Face: Positive: Normal Head/Face Inspection Eyes: Positive: EOMI, DAMARIS ENT: Positive: Hearing grossly normal Respiratory/Lung Sounds: Positive: Clear to Auscultation, Breath Sounds Present Cardiovascular: Positive: RRR, S1, S2 Abdomen Description: Positive: Nontender, No Organomegaly, Soft Bowel Sounds: Positive: Present Musculoskeletal: Positive: Strength/ROM Intact Neurological: Positive: Sensory/Motor Intact, Alert, Oriented to Person Place, Time, Facial Symmetry, Speech Normal Psychiatric: Positive: Normal, Affect/Mood Appropriate AVPU Assessment: Alert Procedures - Sedation Patient Received Moderate/Deep Sedation with Procedure: No Diagnostics - Vital Signs Vital Signs Temp Pulse Resp BP Pulse Ox 10/17/19 21:45 98.0 F 70 18 145/78 10/17/19 19:43 100.1 F 96 18 140/76 98 - Laboratory Lab Results: Lab Results 10/17/19 10/17/19 Range/Units 20:16 20:16 WBC 4.8 (3.5-10.8) 10^3/uL RBC 4.22 (3.70-4.87) 10^6 /uL Hgb 12.3 (12.0-16.0) g/dL Hct 37 (35-47) % MCV 87 (80-97) fL MCH 29 (27-31) pg MCHC 34 (31-36) g/dL RDW 14 (10-15) % Plt Count 216 (150-450) 10^3/uL MPV 8.6 (7.4-10.4) fL Neut % (Auto) 40.1 % Lymph % (Auto) 47.3 % [place] % (Auto) 8.7 % Eos % (Auto) 2.8 % Baso % (Auto) 1.1 % Absolute Neuts (auto) 1.9 (1.5-7.7) 10^3/ul Absolute Lymphs (auto) 2.3 (1.0-4.8) 10^3/ul Absolute Monos (auto) 0.4 (0-0.8) 10^3/ul Absolute Eos (auto) 0.1 (0-0.6) 10^3/ul Absolute Basos (auto) 0.1 (0-0.2) 10^3/ul Absolute Nucleated RBC 0.0 10^3/ul Nucleated RBC % 0.1 Sodium 137 (135-145) mmol/L Potassium 4.2 (3.5-5.0) mmol/L Chloride 106 (101-111) mmol/L Carbon Dioxide 25 (22-32) mmol/L Anion Gap 6 (2-11) mmol/L BUN 14 (6-24) mg/dL Creatinine 1.15 H (0.51-0.95) mg/dL Est GFR ( Amer) 65.8 (>60) Est GFR (Non-Af Amer) 54.3 (>60) BUN/Creatinine Ratio 12.2 (8-20) Glucose 94 (70-100) mg/dL Calcium 8.6 (8.6-10.3) mg/dL Total Bilirubin 0.20 (0.2-1.0) mg/dL AST 40 H (13-39) U/L ALT 28 (7-52) U/L Alkaline Phosphatase 65 (34-104) U/L Total Protein 7.2 (6.4-8.9) g/dL Albumin 4.1 (3.2-5.2) g/dL Globulin 3.1 (2-4) g/dL Albumin/Globulin Ratio 1.3 (1-3) Beta HCG, Quant < 0.60 mIU/mL Result Diagrams: 10/17/19 20:16 10/17/19 20:16 Lab Statement: Any lab studies that have been ordered have been reviewed, and results considered in the medical decision making process. Abdominal Pain Fem Course/Dx - Course Course Of Treatment: Patient was evaluated in the emergency department today for abdominal pain. Patient was seen and examined her vitals are stable and she is afebrile. Laboratory results returned showing no evidence of leukocytosis or significant electrolyte, mildly. Transvaginal ultrasound returned showing no acute pathology. The patient mentioned she had vaginal discharged which was addressed at [facility] prior to her arrival in the emergency department. it was discussed with the patient the possibility of vaginal disorders as the cause for symptoms however she deferred cultures and pelvic examination in the emergency department. Patient discharged with outpatient follow-up. - Diagnoses Differential Diagnosis: Positive: Appendicitis, Diverticulitis, Ovarian Cyst, Pelvic Inflammatory Disease, Renal Colic, Urinary Tract Infection Provider Diagnoses: Abdominal pain Discharge ED - Sign-Out/Discharge Documenting (check all that apply): Patient Departure - Discharge Plan Condition: Stable Disposition: HOME Patient Education Materials: Abdominal Pain (ED) Referrals: No Primary Care Phys,NOPCP [Primary Care Provider] - [facility] [Outside] - 3 Days Additional Instructions: You were seen in the emergency department today for abdominal pain. There is no evidence that your symptoms are due to a life-threatening or infectious process requiring intervention at this time. Please follow up with your primary care provider or net front end developer in 3 days for further evaluation and management of your symptoms. Please return to the emergency department immediately if you develop any new or worsening symptoms. - Billing Disposition and Condition Condition: STABLE Disposition: Home
[2019-10-18 00:53] VITALS: BP 135/84
[2019-10-18 01:42] LABS: Urine Appearance Clear; Urine Bilirubin Negative (Negative); Urine Blood Negative (Negative); Urine Color Straw; Urine Glucose Negative (Negative); Urine Ketones Negative (Negative); Urine Nitrite Negative (Negative); Urine Protein Negative (Negative); Urine Urobilinogen Negative (Negative)
== END 2019-10-18 00:56 | disposition home or self-care (01) ==
LOC: ED 19:32
DX: R10.32 Left lower quadrant pain (principal); Z98.84 Bariatric surgery status
CPT/HCPCS: 36415; 76830; 80053; 81003; 84702; 85025; 99282